=== PATIENT | female | born 2000 | race Caucasian/White ===

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

== ENCOUNTER 2021-05-22 16:42 | Outpatient (CLI) | payer OTHER, SELFPAY ==
--- NOTE | ~2021-05-22 | XR_ITS ---
EXAMINATION: XR ankle LT min 3V DATE: 05/22/2021 17:01 INDICATION: Left ankle pain. TECHNIQUE: 4 views of left ankle were obtained. COMPARISON: None. FINDINGS: Bone alignment is normal. No fracture. Joint spaces are well maintained. IMPRESSION: 1. Normal left ankle. Reviewed, dictated and finalized at location A. IMPRESSION: 1. Normal left ankle.
== END 2021-05-22 16:43 | disposition home or self-care (01) ==
LOC: CHSIMG 16:43
PROVIDERS: PCP Family Medicine; Visit Provider Family Medicine
DX: M79.672 Pain in left foot (principal)
CPT/HCPCS: 73610

== ENCOUNTER 2021-07-19 18:26 | Emergency (ER) | payer OTHER, SELFPAY ==
--- NOTE | ~2021-07-19 | CT_ITS ---
EXAMINATION: CT LE RT wo con DATE: 07/19/2021 23:06 INDICATION: Right lower leg pain. TECHNIQUE: Computed tomography (CT) of the right lower limb was performed without intravenous contras t. Automated exposure control and iterative reconstruction technique were employed. The dose-length p roduct was 795.46 mGy-cm. COMPARISON: Right femur radiographs 07/19/2021 FINDINGS: Bone alignment is normal. There is a tiny chip of bone adjacent to posterior lateral aspect of medial tibial condyle. Joint spaces are normal. There is a moderate-sized lipohemarthrosis. IMPRESSION: 1. Moderate-sized lipohemarthrosis. 2. Tiny chip of bone adjacent to posterior lateral aspect of medial tibial condyle, likely a fracture . Reviewed, dictated and finalized at location A. MACOMETRICIAN IMPRESSION: 1. Moderate-sized lipohemarthrosis. 2. Tiny chip of bone adjacent to posterior lateral aspect of medial tibial cond yle, likely a fracture.
--- NOTE | ~2021-07-19 | XR_ITS ---
EXAMINATION: XR femur RT min 2V DATE: 07/19/2021 18:45 INDICATION: Right femur pain. Injury. TECHNIQUE: 2 views of right femur on 4 radiographs were obtained. COMPARISON: None. FINDINGS: Bone alignment is normal. No fracture. Joint spaces are well maintained. No knee joint effu danial. IMPRESSION: 1. No fracture. Reviewed, dictated and finalized at location A. PLACEMENT COUNSELOR IMPRESSION: 1. No fracture.
--- NOTE | 2021-07-19 18:47 | ED.GENADULT ---
HPI - General Adult General Chief complaint: Extremity Injury, Lower Stated complaint: lower extremity injury Time Seen by Provider: 07/19/21 18:36 Source: patient and RN notes reviewed History of Present Illness HPI narrative: Patient is a 21 y/o female complaining of right thigh and knee pain after jumping on a trampoline. This occurred about 1 hour ago. She describes her pain as sharp and rates it as 8/10. There is no known alleviating or exacerbating factor. She has no headache, neck pain, back pain, chest pain or abdominal pain. Related Data Home Medications Medication Instructions Recorded Confirmed prenat.vits,merissa,[id number] 1 tablet PO DAILY 07/04/19 02/18/21 ferrous sulfate 325 mg (65 mg 325 mg PO DAILY 11/07/20 02/18/21 iron) tablet Allergies Allergy/AdvReac Type Severity Reaction Status Date / Time No Known Allergies Allergy Unknown Verified 07/19/21 19:10 Review of Systems Constitutional: Constitutional: Denies chills, Denies fever(s), Denies headache(s) and Denies weakness Eyes: Eyes: Denies blurry vision ENT: Denies headache(s) and Denies neck pain Cardiovascular: Cardiovascular: Denies chest pain and Denies dyspnea Respiratory: Respiratory: Denies cough and Denies dyspnea Gastrointestinal: Gastrointestinal: Denies abdominal pain, Denies diarrhea, Denies nausea and Denies vomiting Genitourinary: Genitourinary: Denies hematuria and Denies dysuria Musculoskeletal: Musculoskeletal: Denies back pain, Denies neck pain and Reports other (right thigh pain and knee pain) Neurologic: Denies headache(s) and Denies weakness [facility] Past Medical History Medical History Anemia Depression Encounter for counseling regarding contraception Encounter for visit Vaginal delivery Surgical History Surgical History History of appendectomy Hx of tonsillectomy Family History Family History Sibling MCAD deficiency Other IgA nephropathy Social History Social History Smoking status: Never smoker Substance use: never Spiritual care concerns: No Exam Const: General: no acute distress and well developed Orientation/consciousness: oriented to person, oriented to place, oriented to time and patient oriented x3 HENMT: Head: normocephalic Ears: external ears normal General nose exam: Normal external nose present Eyes: General: appearance normal, both eyes and all related structures Conjunctivae: conjunctivae normal Neck: Neck: normal visual inspection and full ROM Chest: Chest palpation & inspection: normal inspection of the chest and no tenderness Resp: Effort & Inspection: normal respiratory effort Auscultation: clear to auscultation bilaterally Cardio: Rate: regular rate Rhythm: regular rhythm GI: GI Palp: No abdominal tenderness and Yes Soft to palpation Skin: General skin exam: normal color and turgor normal Neuro: General: oriented to person, oriented to place, oriented to time and patient oriented x3 Cognition (Neuro): normal cognition Extrem: General: normal to inspection, full ROM and no pedal edema Psych: Appearance: grossly normal Mental Status: mental status grossly normal Affect: normal affect Course Vital Signs Vital signs: Vital Signs Temperature 36.6 C 07/19/21 19:06 Pulse Rate 90 07/19/21 19:06 Respiratory Rate 16 07/19/21 19:06 Blood Pressure 126/78 07/19/21 19:06 Pulse Oximetry 99 07/19/21 19:06 Temperature 36.6 C 07/19/21 19:06 Pulse Rate 74 07/19/21 23:57 Respiratory Rate 16 07/19/21 23:57 Blood Pressure 122/74 07/19/21 23:57 Pulse Oximetry 99 07/19/21 23:57 Medical Decision Making Vital Signs Vital Signs: Vital Signs Temperature 36.6 C 07/19/21 19:06 Pulse Rate 90 07/19/21 19:06
[2021-07-19 19:06] VITALS: BP 126/78; PULSE 90; RESP 16; TEMP 36.6; O2SAT 99
[2021-07-19] MEDS: KETOROLAC 15 MG/ML VIAL (*BKC) IV PUSH (19:11)
[2021-07-19 20:47] VITALS: BP 120/74; PULSE 88; RESP 16; O2SAT 99
[2021-07-19 22:10] VITALS: BP 122/74; PULSE 70; RESP 16; O2SAT 99
[2021-07-19 23:57] VITALS: BP 122/74; PULSE 74; RESP 16; O2SAT 99
== END 2021-07-20 00:08 | disposition home or self-care (01) ==
PROVIDERS: Emergency Provider Emergency Medicine; PCP Family Medicine
DX: M25.461 Effusion, right knee (principal); M25.561 Pain in right knee
CPT/HCPCS: 73552; 73700; 96374; 99284; J1885

== ENCOUNTER 2021-09-30 15:30 | Outpatient (CLI) | payer BC, MEDICAID, SELFPAY ==
[2021-09-30 15:50] LABS: Basophils Absolute Auto 0.04 K/mm3 (0.00-0.10); Basophils Percent Auto 0.4 % (0.0-1.0); Eosinophils Absolute Auto 0.17 K/mm3 (0.02-0.50); Eosinophils Percent Auto 1.8 % (1.0-6.0); Hematocrit 42.1 % (35.0-49.0); Hemoglobin 14.4 g/dL (12.0-15.0); Immature Granulocyte Absolute 0.03 K/mm3 (0.00-0.00); Immature Granulocyte Percent A 0.3 % (0.0-0.0); Lymphocytes Absolute Auto 2.13 K/mm3 (1.10-4.50); Lymphocytes Percent Auto 22.8 % (18.0-42.0); Mean Corpuscular HGB Conc 34.2 g/dL (32.0-36.0); Mean Corpuscular Hemoglobin 30.1 pg (27.0-31.0); Mean Corpuscular Volume 88.1 fL (78.0-102.0); Mean Platelet Volume 9.5 fl (9.2-11.8); Monocytes Absolute Auto 0.57 K/mm3 (0.10-0.90); Monocytes Percent Auto 6.1 % (2.0-11.0); Neutrophils Absolute Auto 6.4 K/mm3 (1.7-7.2); Neutrophils Percent Auto 68.6 % (50.0-70.0); Platelet Count Result 301 K/mm3 (150-420); Red Blood Count 4.78 M/mm3 (4.20-5.40); Red Cell Distribution Width 12.9 % (11.6-14.4); White Blood Count 9.4 K/mm3 (4.8-10.8)
== END 2021-09-30 15:31 | disposition home or self-care (01) ==
LOC: CHSLAB 15:33
PROVIDERS: PCP Family Medicine; Visit Provider Orthopaedic Surgery
DX: D50.8 Other iron deficiency anemias (principal)
CPT/HCPCS: 36415; 85025

== ENCOUNTER 2023-02-07 14:23 | Outpatient (CLI) | payer OTHER, SELFPAY ==
[2023-02-07 14:51] LABS: Influenza Control Valid (Valid); SARS-CoV-2 Ag Negative (Negative)
[2023-02-07 15:10] LABS: Strep Group A RT-PCR NOT DETECTED (Negative)
== END 2023-02-07 14:24 | disposition home or self-care (01) ==
LOC: CHSLAB 14:25
PROVIDERS: PCP Family Medicine; Visit Provider Family Medicine
DX: J06.9 Acute upper respiratory infection, unspecified (principal); Z20.822 Contact with and (suspected) exposure to COVID-19
CPT/HCPCS: 87426; 87651; 87804; C9803

== ENCOUNTER 2023-02-09 05:23 | Emergency (ER) | payer OTHER, SELFPAY ==
--- NOTE | ~2023-02-09 | CT_ITS ---
CT Facial Bones Clinical Indication: Infectious symptoms, right jaw pain Technique: Following intravenous administration of 75 mL of Omnipaque 350 contrast material, axial sc ans were obtained through the facial bones followed by coronal and sagittal reconstructions. Dose red uction technique was used on this scan by utilizing automated exposure control and iterative reconstr uction technique. The dose-length product (DLP) was 512.99 mGy-cm. Findings: No fractures are identified. The visualized paranasal sinuses are clear. Intraorbital soft tissues appear normal. No abnormal mass lesion or fluid collection seen. Impression: No significant abnormality identified. Reviewed, dictated and finalized at location . Impression: No significant abnormality identified.
[2023-02-09 05:25] VITALS: PULSE 100; RESP 15; TEMP 36.6; O2SAT 100
--- NOTE | 2023-02-09 05:47 | ED.URI ---
HPI - URI/Sore Throat General Chief Complaint: Eye Problems Stated Complaint: pink eye-right sided jaw pain Time Seen by Provider: 02/09/23 05:40 History of Present Illness HPI Narrative: Patient has been having congestion symptoms for the last few days, then started having right-sided pinkeye, this morning was woken out of sleep because her right jaw was hurting so badly; no dental problems, but feels like her teeth are going to fall out due to pain. Related Data Home Medications Medication Instructions Recorded Confirmed prenat.vits,merissa,uvp-dzra-avhjn 1 tablet PO DAILY 07/04/19 02/18/21 ferrous sulfate 325 mg (65 mg 325 mg PO DAILY 11/07/20 02/18/21 iron) tablet (Iron (ferrous sulfate)) Allergies Allergy/AdvReac Type Severity Reaction Status Date / Time No Known Allergies Allergy Unknown Verified 02/09/23 05:29 Review of Systems Review of Systems: CONST: No fever. HEENT: Right jaw pain, congestion, right pinkeye C/V: No chest pain RESP: No cough GI: No abdominal pain : No dysuria. M/S: No joint pain. SKIN: No rash. NEURO: [No headache or focal numbness or weakness] PSYCH: [No depression] [facility] Past Medical History Medical History Anemia Depression Encounter for counseling regarding contraception Encounter for visit Vaginal delivery Surgical History Surgical History History of appendectomy Hx of tonsillectomy Family History Family History Sibling MCAD deficiency Other IgA nephropathy Social History Social History Smoking status: Never smoker Substance use: never Spiritual care concerns: No Exam Narrative: EXAMINATION OF ORGAN SYSTEMS/BODY AREAS: Constitutional: Vital signs per nursing GENERAL: Appears uncomfortable, holding towel to her right jaw HEAD: Normal with no signs of head trauma. EYES: Injected right eye with some tearing and very slight swelling of eyelids ENT: No dental tenderness or caries, no trismus; she has tenderness to palpation to the right jaw. Right ear no tenderness to canal, no bulging TM LUNGS: Nonlabored breathing. HEART: [Regular rate and rhythm] EXT: Normal range of motion SKIN: [No rashes or lesions.] NEURO: [Alert and oriented x 3. No gross focal sensory or strength deficits.] PSYCH: Normal affect Course Vital Signs Vital signs: Vital Signs Temperature 36.6 C 02/09/23 05:25 Pulse Rate 100 02/09/23 05:25 Respiratory Rate 15 02/09/23 05:25 Pulse Oximetry 100 02/09/23 05:25 Oxygen Delivery Room Air 02/09/23 05:25 Temperature 36.6 C 02/09/23 05:25 Pulse Rate 100 02/09/23 05:25 Respiratory Rate 15 02/09/23 05:25 Pulse Oximetry 100 02/09/23 05:25 Oxygen Delivery Room Air 02/09/23 05:25 MDM - URI/Sore Throat MDM Narrative Medical decision making narrative: 22-year-old female presenting with congestion symptoms and right jaw pain that woke her out of sleep. Vital signs notable for borderline tachycardia, she does look to be pretty uncomfortable and holding her jaw, no obvious dental tenderness or caries, she does have all of right-sided abnormalities but with right jaw pain, right eye pain and redness, given this I will obtain a broad work-up including blood work and CAT scan to rule out deeper infection. She is started on antibiotics. Toradol and loratadine/Sudafed ordered, and on reevaluation, patient states that she is feeling much better. Signout to oncoming ER physician. Lab Data 02/09/23 06:49 02/09/23 06:49 Labs: Lab Results 02/09/23 Range/Units 06:49 WBC 11.8 H (4.5-10.0) K/mm3 RBC 4.82 (4.2-5.4) M/mm3 Hgb 13.7 D (12.0-15.0) g/dL Hct 41.8 (37.0-47.0) % MCV 86.7 (80-100) fl MCH 28.4 (26-34) pg MCHC 32.8
[2023-02-09] MEDS: KETOROLAC 30 MG/ML VIAL (*BKC) IM (05:54)
[2023-02-09] MEDS: LORATADINE/PSEUDOEPHEDRINE (*CRX) 10/240 MG TABLET ER 24 HR 1 TAB PO (05:55)
[2023-02-09 06:55] LABS: Basophils Percent Auto 0.2 % (0.2-1.2); Eosinophils Absolute Auto 0.1 K/mm3 (0-0.3); Eosinophils Percent Auto 1.2 % (0-4.4); Hematocrit 41.8 % (37.0-47.0); Hemoglobin 13.7 g/dL (12.0-15.0); Immature Granulocyte Absolute 0.06 K/mm3 (0.00-0.031); Immature Granulocyte Percent A 0.5 % (0-0.5); Lymphocytes Absolute Auto 1.52 K/mm3 (0.9-3.2); Lymphocytes Percent Auto 12.8 % (18.3-44.2); Mean Corpuscular HGB Conc 32.8 g/dl (32-36); Mean Corpuscular Hemoglobin 28.4 pg (26-34); Mean Corpuscular Volume 86.7 fl (80-100); Mean Platelet Volume 9.2 fl (7.4-10.4); Monocytes Absolute Auto 0.6 K/mm3 (0.1-0.6); Monocytes Percent Auto 4.9 % (2.6-8.5); Neutrophils Absolute Auto 9.5 K/mm3 (1.3-6.7); Neutrophils Percent Auto 80.4 % (45.5-73.1); Platelet Count Result 280 k/mm3 (150-375); Red Blood Count 4.82 M/mm3 (4.2-5.4); Red Cell Distribution Width 12.7 % (11.5-14.5); White Blood Count 11.8 K/mm3 (4.5-10.0)
[2023-02-09 07:05] LABS: Anion Gap 7 mmol/L (8-16); Blood Urea Nitrogen 10 mg/dL (7-17); Calcium 9.1 mg/dL (8.4-10.2); Carbon Dioxide 30 mmol/L (22-30); Chloride 103 mmol/L (98-107); Estimated CRCL calculation 123 ml/min; Estimated Glomerular Filt Rate > 60; Glucose 96 mg/dL (65-110); Potassium 3.9 mmol/L (3.4-5.0); Sodium 140 mmol/L (137-145)
[2023-02-09] MEDS: CLINDAMYCIN 600 MG/D5W 50 ML 600 MG/50 ML PIGGYBACK 100 MG IVPB (07:27)
== END 2023-02-09 08:39 | disposition home or self-care (01) ==
PROVIDERS: Emergency Medicine; Emergency Provider Emergency Medicine; PCP Family Medicine
DX: K08.89 Other specified disorders of teeth and supporting structures (principal)
CPT/HCPCS: 36415; 70487; 80048; 81025; 85025; 96365; 96372; 99284; A9270; J1885; Q9967

== ENCOUNTER 2023-06-23 20:08 | Emergency (ER) | payer OTHER, SELFPAY ==
[2023-06-23 21:01] VITALS: BP 118/77; PULSE 93; RESP 18; TEMP 36.6; O2SAT 96
[2023-06-23 21:35] LABS: Basophils Absolute Auto 0.01 K/mm3 (0.00-0.10); Basophils Percent Auto 0.1 % (0.0-1.0); Eosinophils Absolute Auto 0.21 K/mm3 (0.02-0.50); Eosinophils Percent Auto 3.1 % (1.0-6.0); Hematocrit 42.4 % (35.0-49.0); Hemoglobin 14.3 g/dL (12.0-15.0); Immature Granulocyte Absolute 0.01 K/mm3 (0.00-0.00); Immature Granulocyte Percent A 0.1 % (0.0-0.0); Lymphocytes Absolute Auto 0.92 K/mm3 (1.10-4.50); Lymphocytes Percent Auto 13.6 % (18.0-42.0); Mean Corpuscular HGB Conc 33.7 g/dL (32.0-36.0); Mean Corpuscular Hemoglobin 29.1 pg (27.0-31.0); Mean Corpuscular Volume 86.2 fL (78.0-102.0); Mean Platelet Volume 9.4 fl (9.2-11.8); Monocytes Absolute Auto 0.48 K/mm3 (0.10-0.90); Monocytes Percent Auto 7.1 % (2.0-11.0); Neutrophils Absolute Auto 5.1 K/mm3 (1.7-7.2); Platelet Count Result 283 K/mm3 (150-420); Red Blood Count 4.92 M/mm3 (4.20-5.40); Red Cell Distribution Width 12.2 % (11.6-14.4); White Blood Count 6.8 K/mm3 (4.8-10.8)
[2023-06-23] MEDS: SODIUM CHLORIDE 0.9% IV 1,000 ML 999 ML IV CONT (21:51)
[2023-06-23] MEDS: ONDANSETRON INJ 4 MG/2 ML VIAL IV PUSH (21:52)
[2023-06-23 21:53] LABS: Alanine Aminotransferase 16 U/L (14-59); Albumin Level 3.8 g/dL (3.4-5.0); Alkaline Phosphatase 94 U/L (46-116); Anion Gap 10 mmol/L (8-16); Aspartate Amino Transferase 12 U/L (15-37); Bilirubin,Total 0.8 mg/dL (0.00-1.00); Blood Urea Nitrogen 13 mg/dL (7-18); Carbon Dioxide 26 mmol/L (21-32); Chloride 103 mmol/L (98-108); Estimated CRCL calculation 94 ml/min; Estimated Glomerular Filt Rate > 60; Glucose 84 mg/dL (70-99); Osmolality Calculated 287 mOsm/kg (285-295); Potassium 3.9 mmol/L (3.5-5.1); Sodium 139 mmol/L (136-145); Total Protein 7.4 g/dL (6.4-8.2)
[2023-06-23 22:17] LABS: Influenza A QL RT-PCR Negative (Negative); Influenza B QL RT-PCR Negative (Negative); SARS-CoV-2 RNA PCR Negative (Negative)
--- NOTE | 2023-06-23 22:19 | ED.NAVMDI ---
HPI - Nausea/Vomiting/Diarrhea General Chief complaint: Nausea/Vomiting/Diarrhea Stated complaint: FLU LIKE SYMPTOMS WITH DIZZINESS Source: patient and family Mode of arrival: ambulatory Limitations: no limitations History of Present Illness HPI Narrative: this is 23-year-old female with no significant past medical history that presents with nausea vomiting and diarrhea off and on for the past week did see her primary a week ago and was given Zofran currently symptoms have continued with diarrhea there is no crampy abdominal pain no fever chills no shortness of breath no chest pain. MD elicited complaint: nausea, vomiting and diarrhea Associated nausea: Yes Associated abdominal pain: No Related Data Home Medications Medication Instructions Recorded Confirmed ondansetron HCl 4 mg tablet 8 mg PO BID 06/23/23 06/23/23 Allergies Allergy/AdvReac Type Severity Reaction Status Date / Time No Known Allergies Allergy Unknown Verified 02/09/23 05:29 Review of Systems Review of Systems: All systems reviewed & are unremarkable except as noted in HPI and below PMFSH Past Medical History Medical History Anemia Depression Encounter for counseling regarding contraception Encounter for visit Vaginal delivery Surgical History Surgical History History of appendectomy Hx of tonsillectomy Family History Family History Sibling MCAD deficiency Other IgA nephropathy Social History Social History Smoking status: Never smoker Substance use: never Spiritual care concerns: No Exam Const: General: healthy appearing Nutritional Appearance: well nourished Orientation/consciousness: patient oriented x3 Limitations: no limitations HENMT: Head: normal to inspection Eyes: Conjunctivae: conjunctivae normal Pupils: Equal, round and reactive pupils present Neck: Neck: normal visual inspection, no lymphadenopathy and no meningeal signs Chest: Chest palpation & inspection: normal inspection of the chest Resp: Effort & Inspection: normal respiratory effort Auscultation: clear to auscultation bilaterally Cardio: Rate: regular rate Rhythm: regular rhythm GI: GI Palp: Yes Soft to palpation Auscultation: normal bowel sounds Urinary Catheter: Urinary Catheter: patent and draining Back/Spine/Pelvis: Back: no CVA tenderness Skin: General skin exam: normal color Rashes: no rashes Neuro: General: patient oriented x3 and moves all extremities Psych: Mental Status: mental status grossly normal Affect: normal affect Course Course Emergency Course: Patient received Zofran IV and IV fluids after reassessment patient's symptoms have improved, labs reviewed which showed no acute abnormalities, and COVID RSV and influenza negative. Vital Signs Vital signs: Vital Signs Temperature 36.6 C 06/23/23 21:01 Pulse Rate 93 06/23/23 21:01 Respiratory Rate 18 06/23/23 21:01 Blood Pressure 118/77 06/23/23 21:01 Pulse Oximetry 96 06/23/23 21:01 Oxygen Delivery Room Air 06/23/23 21:01 Temperature 36.6 C 06/23/23 21:01 Pulse Rate 93 06/23/23 21:01 Respiratory Rate 18 06/23/23 21:01 Blood Pressure 118/77 06/23/23 21:01 Pulse Oximetry 96 06/23/23 21:01 Oxygen Delivery Room Air 06/23/23 21:01 MDM - Nausea/Vomiting/Diarrhea Lab Data 06/23/23 21:31 06/23/23 21:31 Labs: Lab Results 06/23/23 Range/Units 21:31 WBC 6.8 (4.8-10.8) K/mm3 RBC 4.92 (4.20-5.40) M/mm3 Hgb 14.3 (12.0-15.0) g/dL Hct 42.4 (35.0-49.0) % MCV 86.2 (78.0-102.0) fL MCH 29.1 (27.0-31.0) pg MCHC 33.7 (32.0-36.0) g/dL RDW 12.2 (11.6-14.4) % Plt Count 283 (150-420) K/mm3 MPV 9.4 (9.2-11.8) fl Immature Gran % (A
[2023-06-23 22:21] LABS: RSV RNA, RT-PCR Negative (Negative)
[2023-06-23 22:25] VITALS: BP 124/77; PULSE 88; RESP 16; O2SAT 98
== END 2023-06-23 22:36 | disposition home or self-care (01) ==
PROVIDERS: Emergency Provider Emergency Medicine; PCP Family Medicine
DX: K52.9 Noninfective gastroenteritis and colitis, unspecified (principal); Z20.822 Contact with and (suspected) exposure to COVID-19
CPT/HCPCS: 36415; 80053; 85025; 87637; 96361; 96374; 99284; J2405; J7030

== ENCOUNTER 2023-07-25 07:42 | Emergency (ER) | payer OTHER, SELFPAY ==
[2023-07-25 07:42] VITALS: BP 119/83; PULSE 128; RESP 18; TEMP 37.7; O2SAT 98
--- NOTE | 2023-07-25 07:59 | ED.GENADULT ---
HPI - General Adult General Chief complaint: Upper Respiratory Infection Stated complaint: upper resp Time Seen by Provider: 07/25/23 07:59 History of Present Illness HPI narrative: Healthy 23yo woman, , presents with sore throat, chills, body aches, for one day. No dyspnea or chest pain. Needs work note. Related Data Home Medications Medication Instructions Recorded Confirmed No Home Medications 07/25/23 07/25/23 Allergies Allergy/AdvReac Type Severity Reaction Status Date / Time No Known Allergies Allergy Unknown Verified 07/25/23 07:43 Review of Systems Constitutional: Constitutional: Reports chills and Denies fever(s) ENT: Denies dysphagia Cardiovascular: Cardiovascular: Denies chest pain Respiratory: Respiratory: Denies dyspnea PMFSH Past Medical History Medical History Anemia Depression Encounter for counseling regarding contraception Encounter for visit Vaginal delivery Surgical History Surgical History History of appendectomy Hx of tonsillectomy Family History Family History Sibling MCAD deficiency Other IgA nephropathy Social History Social History Smoking status: Never smoker Substance use: never Spiritual care concerns: No Exam Const: General: healthy appearing and no acute distress Nutritional Appearance: well nourished Eyes: Conjunctivae: conjunctivae normal Resp: Effort & Inspection: normal respiratory effort Auscultation: clear to auscultation bilaterally Cardio: Rate: regular rate Rhythm: regular rhythm Heart sounds: no murmurs GI: Inspection: non-distended Skin: General skin exam: normal color, no jaundice and no pallor Extrem: General: no clubbing, cyanosis or edema Course Vital Signs Vital signs: Vital Signs Temperature 37.7 C H 07/25/23 07:42 Pulse Rate 128 H 07/25/23 07:42 Respiratory Rate 18 07/25/23 07:42 Blood Pressure 119/83 07/25/23 07:42 Pulse Oximetry 98 07/25/23 07:42 Oxygen Delivery Room Air 07/25/23 07:42 Temperature 37.7 C H 07/25/23 07:42 Pulse Rate 128 H 07/25/23 07:42 Respiratory Rate 18 07/25/23 07:42 Blood Pressure 119/83 07/25/23 07:42 Pulse Oximetry 98 07/25/23 07:42 Oxygen Delivery Room Air 07/25/23 07:42 Medical Decision Making MDM Narrative Medical decision making narrative: acute viral syndrome, symptom relief, work excusal Vital Signs Vital Signs: Vital Signs Temperature 37.7 C H 07/25/23 07:42 Pulse Rate 128 H 07/25/23 07:42 Respiratory Rate 18 07/25/23 07:42 Blood Pressure 119/83 07/25/23 07:42 Pulse Oximetry 98 07/25/23 07:42 Oxygen Delivery Room Air 07/25/23 07:42 Temperature 37.7 C H 07/25/23 07:42 Pulse Rate 128 H 07/25/23 07:42 Respiratory Rate 18 07/25/23 07:42 Blood Pressure 119/83 07/25/23 07:42 Pulse Oximetry 98 07/25/23 07:42 Oxygen Delivery Room Air 07/25/23 07:42 Lab Data Labs: Lab Results 07/25/23 Range/Units 07:46 Influenza A (RT-PCR) Pending Influenza B (RT-PCR) Pending RSV (RT-PCR) Pending SARS-CoV-2 RNA (RT-PCR) Pending Group A Strep (PCR) Pending Discharge Plan Discharge Clinical Impression: Acute viral syndrome Patient Disposition: Home, Self-Care Condition: Stable Instructions: Antibiotic Form Additional Instructions: For pain or fever, you can take Acetaminophen 1000 mg every 6 hours as needed. For nausea, you can take Diphenhydramine 25 mg every 6 hours as needed. Drink plenty of water, juice, and/or gatorade. Try to drink at least a half-gallon (4 pints) per day. Prescriptions: No Action No Home Medications Follow-up/Referrals: Alex Perez MD [Primary Care Prov
[2023-07-25] MEDS: ONDANSETRON HCL ODT 4 MG TABLET PO (08:11)
[2023-07-25] MEDS: ACETAMINOPHEN 500 MG TABLET 1000 MG PO (08:11)
[2023-07-25 08:13] LABS: Strep Group A RT-PCR NOT DETECTED (Negative)
[2023-07-25 08:24] LABS: SARS-CoV-2 RNA PCR Negative (Negative)
[2023-07-25 08:36] LABS: Influenza A QL RT-PCR Negative (Negative); Influenza B QL RT-PCR Negative (Negative); RSV RNA, RT-PCR Negative (Negative)
[2023-07-25 08:42] VITALS: PULSE 122; RESP 18; TEMP 37.1; O2SAT 98
== END 2023-07-25 08:42 | disposition home or self-care (01) ==
PROVIDERS: Emergency Provider Emergency Medicine; PCP Family Medicine
DX: B34.9 Viral infection, unspecified (principal); Z20.822 Contact with and (suspected) exposure to COVID-19
CPT/HCPCS: 87637; 87651; 99283; A9270

== ENCOUNTER 2023-09-22 10:03 | Emergency (ER) | payer OTHER, SELFPAY ==
[2023-09-22 10:03] VITALS: BP 128/104; PULSE 112; RESP 14; TEMP 36.6; O2SAT 100
--- NOTE | 2023-09-22 10:28 | ED.FEMALEGU ---
HPI - Female Genitourinary General Chief complaint: Urogenital-Female Stated complaint: UTI Source: patient Mode of arrival: ambulatory Limitations: no limitations History of Present Illness HPI Narrative: this is a 23-year-old female that was recently diagnosed with urinary tract infection by her drop board worker but did not take her medication presents today with some continued suprapubic pain and tenderness with no fever chills the patient is 13 weeks with no cramping no vaginal bleeding no spotting. No nausea vomiting no chest pain no shortness of breath no diarrhea or constipation. MD elicited complaint: dysuria and flank pain Severity: mild Female Urogenital Radiation: Suprapubic Related Data Home Medications Medication Instructions Recorded Confirmed ferrous sulfate 325 mg (65 mg 325 mg PO DAILY 09/22/23 09/22/23 iron) tablet (iron) nitrofurantoin 1 cap PO BID 09/22/23 09/22/23 monohydrate/macrocrystals 100 mg capsule vitamins no.144-folic 1 tablet PO DAILY 09/22/23 09/22/23 acid 400 mcg chewable tablet () Allergies Allergy/AdvReac Type Severity Reaction Status Date / Time No Known Allergies Allergy Unknown Verified 07/25/23 07:43 Review of Systems Review of Systems: All systems reviewed & are unremarkable except as noted in HPI and below PMFSH Past Medical History Medical History Anemia Depression Encounter for counseling regarding contraception Encounter for visit Vaginal delivery Surgical History Surgical History History of appendectomy Hx of tonsillectomy Family History Family History Sibling MCAD deficiency Other IgA nephropathy Social History Social History Smoking status: Never smoker Substance use: never Spiritual care concerns: No Exam Const: General: healthy appearing Nutritional Appearance: well nourished Orientation/consciousness: patient oriented x3 Chest: Chest palpation & inspection: normal inspection of the chest Resp: Effort & Inspection: normal respiratory effort Auscultation: clear to auscultation bilaterally Cardio: Rate: regular rate Rhythm: regular rhythm GI: GI Palp: Yes Soft to palpation and Yes Tenderness to palpation present (GI) ( Suprapubic tenderness) : General: Yes Bladder palpation abnormal and Yes CVA tenderness Back/Spine/Pelvis: Back: CVA tenderness Skin: General skin exam: normal color Rashes: no rashes Neuro: General: patient oriented x3 Cranial nerves: Yes Nystagmus not present Extrem: General: normal to inspection Psych: Appearance: grossly normal Course Course Emergency Course: patient afebrile and given a dose of antibiotic Macrobid 100mg p.o. along with Tylenol extra-strength 650mg p.o.. Advised to cone picker her dose of Macrobid that was called in by her drop board worker and follow-up with [employer] if symptoms persist or worsen. urine performed which show she has urinary tract infection and antibiotic prescribed by her drop board worker advised continue. Vital Signs Vital signs: Vital Signs Temperature 36.6 C 09/22/23 10:03 Pulse Rate 112 H 09/22/23 10:03 Respiratory Rate 14 09/22/23 10:03 Blood Pressure 128/104 H 09/22/23 10:03 Pulse Oximetry 100 09/22/23 10:03 Oxygen Delivery Room Air 09/22/23 10:03 Temperature 36.6 C 09/22/23 10:03 Pulse Rate 112 H 09/22/23 10:03 Respiratory Rate 14 09/22/23 10:03 Blood Pressure 128/104 H 09/22/23 10:03 Pulse Oximetry 100 09/22/23 10:03 Oxygen Delivery Room Air 09/22/23 10:03 Critical Care Time Critical Care Time Critical Care Time: No Discharge Plan Discharge Clinical Impression: UTI (urinary tract infection) Qualifiers: Urinary tract infection type: acute cystitis Hematuria presence: wit
[2023-09-22 10:46] LABS: Appearance Urine Clear (Clear); Bilirubin Urine Negative (Negative); Blood Urine 3+ (Negative); Color Urine Light Yellow (Yellow); Glucose Urine UA Negative (Negative); Ketones Urine Negative (Negative); Leukocyte Esterase Ur 1+ LEU/UL (Negative); Nitrate Urine Negative (Negative); Protein Urine Negative (Negative); Specific Grav Ur 1.025 (1.010-1.020); Urobilinogen Urine 0.2 mg/dL (0.2-1.0)
[2023-09-22 10:50] LABS: Add Urine Microscopic? YES; RBC Urine 21-50 /hpf (0-2); Squamous Epithelial Cell Urine Few /hpf (Few)
[2023-09-22 10:51] LABS: Bacteria Urine 1+ /hpf
[2023-09-22] MEDS: ACETAMINOPHEN 325 MG TABLET 650 MG PO (11:10)
[2023-09-22] MEDS: NITROFURANTOIN MONOHYD MACROCR 100 MG CAP PO (11:11)
[2023-09-22 11:17] VITALS: BP 113/71; PULSE 100; RESP 14; TEMP 36.8; O2SAT 100
--- NOTE | 2023-09-24 13:29 | PC.NURSE ---
final urine culture reviewed. 10,000-49,000 E.co;i isolated. pt was prescribed macrobid at discharge. culture shows sensitivity to same. no change in plan of care.
== END 2023-09-22 11:26 | disposition home or self-care (01) ==
PROVIDERS: Emergency Provider Emergency Medicine; PCP Family Medicine
DX: O23.11 Infections of bladder in pregnancy, first trimester (principal); N30.00 Acute cystitis without hematuria; Z3A.13 13 weeks gestation of pregnancy
CPT/HCPCS: 81001; 87077; 87086; 87088; 87186; 99283; A9270

== ENCOUNTER 2023-10-02 09:26 | Emergency (ER) | payer OTHER, SELFPAY ==
[2023-10-02 09:30] VITALS: BP 138/91; PULSE 86; RESP 17; TEMP 36.3; O2SAT 100
--- NOTE | 2023-10-02 09:43 | ED.GENADULT ---
HPI - General Adult General Chief complaint: Animal Bite Stated complaint: R THIGH DOG BITE Time Seen by Provider: 10/02/23 09:42 History of Present Illness HPI narrative: This is a 23-year-old female at 15 weeks gestation presenting for a dog bite. Patient was trying to separate her husky and [place] Terrier. the house she bit her on thigh. She has a superficial abrasion over her right thigh. Dog is up-to-date child is acting normally. No complaints. tetanus utd. Related Data Home Medications Medication Instructions Recorded Confirmed ferrous sulfate 325 mg (65 mg 325 mg PO DAILY 09/22/23 10/02/23 iron) tablet (iron) vitamins no.144-folic 1 tablet PO DAILY 09/22/23 10/02/23 acid 400 mcg chewable tablet () Allergies Allergy/AdvReac Type Severity Reaction Status Date / Time No Known Allergies Allergy Unknown Verified 10/02/23 09:42 [facility] Past Medical History Medical History Anemia Depression Encounter for counseling regarding contraception Encounter for visit Vaginal delivery Surgical History Surgical History History of appendectomy Hx of tonsillectomy Family History Family History Sibling MCAD deficiency Other IgA nephropathy Social History Social History Smoking status: Never smoker Substance use: never Spiritual care concerns: No Exam Narrative: APPEARANCE: No apparent distress. Head: atraumatic. EYES: EOMI, NOSE: Atraumatic NECK: Trachea midline RESPIRATORY: No increased rate of breathing CARDIOVASCULAR: RRR, ABDOMINAL: Non-distended MUSCULOSKELETAl: No obvious deformities NEURO: Alert. Moving 4/4 extremities SKIN:: Punctate abrasion over the proximal right thigh. Minor bruising PSYCHIATRIC: Normal affect Course Vital Signs Vital signs: Vital Signs Temperature 97.4 F L 10/02/23 09:30 Pulse Rate 86 10/02/23 09:30 Respiratory Rate 17 10/02/23 09:30 Blood Pressure 138/91 H 10/02/23 09:30 Pulse Oximetry 100 10/02/23 09:30 Temperature 97.4 F L 10/02/23 09:30 Pulse Rate 86 10/02/23 09:30 Respiratory Rate 17 10/02/23 09:30 Blood Pressure 138/91 H 10/02/23 09:30 Pulse Oximetry 100 10/02/23 09:30 Medical Decision Making MDM Narrative Medical decision making narrative: -Course: 23-year-old presenting with a very superficial abrasion over right thigh from her dog. very low risk for infection.No need for antibiotics. Tetanus up-to-date. Wound was cleansed patient discharged with return precautions for signs of infection. 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 Denies use of drugs or alcohol -Shared decision making / Disposition: discharged - Vital Signs Vital Signs: Vital Signs Temperature 97.4 F L 10/02/23 09:30 Pulse Rate 86 10/02/23 09:30 Respiratory Rate 17 10/02/23 09:30 Blood Pressure 138/91 H 10/02/23 09:30 Pulse Oximetry 100 10/02/23 09:30 Temperature 97.4 F L 10/02/23 09:30 Pulse Rate 86 10/02/23 09:30 Respiratory Rate 17 10/02/23 09:30 Blood Pressure 138/91 H 10/02/23 09:30 Pulse Oximetry 100 10/02/23 09:30 Discharge Plan Discharge Clinical Impression: Dog bite of great toe Patient Disposition: Home, Self-Care Condition: Stable Instructions: Antibiotic Form, Animal Bite (ED) Additional Instructions: follow-up with primary care physician. Return if you develop signs of infection. Prescriptions: No Action ferrous sulfate [iron] 325 mg (65 mg iron) Tablet 325 mg PO DAILY 400 mcg Tablet,Chewable 1 tabl
--- NOTE | 2023-10-02 09:51 | PC.NURSE ---
On 10/02/23, the student, Linnette Moreno, provided care and completed [facility] documentation on this patient. I have reviewed the student's documentation and agree with the findings.
[2023-10-02 10:03] VITALS: BP 138/91; PULSE 86; RESP 17; TEMP 36.3; O2SAT 100
== END 2023-10-02 10:03 | disposition home or self-care (01) ==
LOC: CHSED 09:53
PROVIDERS: Emergency Provider Emergency Medicine; PCP Family Medicine
DX: O26.892 Other specified pregnancy related conditions, second trimester (principal); S91.15 Open bite of toe without damage to nail; S71.151A Open bite, right thigh, initial encounter; W54.0XXA Bitten by dog, initial encounter; Y92.009 Unspecified place in unspecified non-institutional (private) residence as the place of occurrence of the external cause; Z3A.15 15 weeks gestation of pregnancy
CPT/HCPCS: 99282

== ENCOUNTER 2023-11-15 18:03 | Emergency (ER) | payer BC, OTHER, SELFPAY ==
[2023-11-15] VITALS (11 sets, daily range): BP systolic 98–145; BP diastolic 62–87; PULSE 86–118; RESP 12–22; TEMP 36.4–36.8; O2SAT 98–100
--- NOTE | ~2023-11-15 | CT_ITS ---
EXAMINATION: CTA chest PE protocol DATE: 11/15/2023 20:54 INDICATION: preg; sob; clear breath sounds; no hx; elev dimer TECHNIQUE: Computed tomography angiography (CTA) of the chest was performed with 100 mL Omnipaque-350 intravenous contrast timed to evaluate the pulmonary arteries. Coronal maximum intensity projection 3D-reconstructions were created by the technologist. The dose-length product (DLP) was 625.45 mGy-cm. Automated exposure control and iterative reconstruction technique were employed. COMPARISON: None. FINDINGS: Lung parenchyma and airways: Clear. Pleura: Unremarkable. Thoracic inlet, axillae and chest wall: Unremarkable. Thoracic aorta: No significant dilation. No dissection. Mediastinum: Normal. Heart and pericardium: Normal. Coronary artery calcifications: Absent. Upper abdomen: No significant finding. Bones: No acute osseous finding. Pulmonary arteries: Study quality: Adequate. No pulmonary emboli detected. IMPRESSION: No CT evidence of acute pulmonary embolus. No acute process detected in the chest. Reviewed, dictated and finalized at location K.
--- NOTE | 2023-11-15 18:11 | ED.SOB ---
HPI - SOB/Dyspnea General Chief Complaint: Shortness of Breath/Dyspnea <Leon Crow APRN - Last Filed: 11/15/23 18:19> Stated Complaint: SOB, 22 weeks <Leon Crow APRN - Last Filed: 11/15/23 18:19> Time Seen by Provider: 11/15/23 18:10 <Leon Crow APRN - Last Filed: 11/15/23 18:19> Focused HPI: Ana Lilia is a 23-year-old female patient presenting to the ER today with complaints of shortness of breath for the past 3 days. She reports she has a nonproductive cough. No other URI symptoms. She denies any fever, chills, or body aches. She is currently 22 weeks . No history of asthma, COPD, or bronchitis. General: Well-developed, well nourished, in no apparent distress Head: Normocephalic, atraumatic Eyes: Pupils equally round and reactive to light bilaterally, EOM intact, sclera and conjunctive clear, no discharge, lids normal Ears: TMs intact and clear, ear canals clear, no drainage, grossly hearing normal. Nose: Nares patent, no discharge, no inflammation, no sinus tenderness. Mouth: Oropharynx without lesions or masses, good dentition, MMM. Neck: Supple, trachea midline, no enlargement of anterior or posterior cervical nodes, no thyroid masses or goiter palpable. Cardio: Regular rate and rhythm, s1 and s2 normal, no murmur appreciated. Resp: Clear to auscultation bilaterally anteriorly and posteriorly, no rhonchi, rales, wheezing or rubs Patient screened in triage and initial orders placed. Additional care and disposition to be based upon diagnostic testing and treatment. <Leon Crow APRN - Last Filed: 11/15/23 18:19> Source: patient <Leon Crow APRN - Last Filed: 11/15/23 18:19> Mode of arrival: ambulatory <Leon Crow APRN - Last Filed: 11/15/23 18:19> Limitations: no limitations <Leon Crow APRN - Last Filed: 11/15/23 18:19> History of Present Illness HPI Narrative: Concur with history as above with the following additions/exceptions obtained during my HPI: patient is a G 3 P2002 female at 21w1d GA by reported ROSIO of 03/26/2024. OBGYN is Dr. Raciel Menard. Patient states she feels like she cannot catch her breath. She continues to feel good movement and denies any leakage of fluid, contractions, abdominal pain. She trialed 600 mg of ibuprofen at home <Domitila Woodard MD - Last Filed: 11/15/23 23:23> Related Data Home Medications: Home Medications Medication Instructions Recorded Confirmed ferrous sulfate 325 mg (65 mg 325 mg PO DAILY 09/22/23 10/02/23 iron) tablet (iron) vitamins no.144-folic 1 tablet PO DAILY 09/22/23 10/02/23 acid 400 mcg chewable tablet () <Leon Crow APRN - Last Filed: 11/15/23 18:19> Allergies/Adverse Reactions: Allergies Allergy/AdvReac Type Severity Reaction Status Date / Time No Known Allergies Allergy Unknown Verified 10/02/23 09:42 <Leon Crow APRN - Last Filed: 11/15/23 18:19> [facility] Past Medical History Medical History: Medical History Anemia Depression Vaginal delivery <Leon Crow APRN - Last Filed: 11/15/23 18:19> Surgical History Surgical History: Surgical History History of appendectomy Hx of tonsillectomy <Leon Crow APRN - Last Filed: 11/15/23 18:19> Family History Family History: Family History Sibling MCAD deficiency Other IgA nephropathy <Leon rCow APRN - Last Filed: 11/15/23 18:19> Social History Social History: Social History Smoking status: Never smoker Substance use: never Spiritual care concerns: No <Leon Crow APRN - Last Filed: 11/15/23 18:19> Comments At
--- NOTE | 2023-11-15 18:12 | ECG_ITS ---
Measurements Intervals [place] Rate: 102 P: 8 CO: 124 QRS: 48 QRSD: 92 T: 28 QT: 335 QTc: 438 Interpretive Statements SINUS TACHYCARDIA BASELINE ARTIFACT BORDERLINE ECG NO PREVIOUS ECG AVAILABLE FOR COMPARISON Electronically Signed On 11-16-2023 14:28:36 CDT by Blaise Frances M.D.
[2023-11-15 18:26] LABS: Basophils Percent Auto 0.3 % (0.2-1.2); Eosinophils Absolute Auto 0.1 K/mm3 (0-0.3); Hematocrit 35.6 % (37.0-47.0); Hemoglobin 11.8 g/dL (12.0-15.0); Immature Granulocyte Absolute 0.06 K/mm3 (0.00-0.031); Immature Granulocyte Percent A 0.5 % (0-0.5); Lymphocytes Absolute Auto 1.82 K/mm3 (0.9-3.2); Lymphocytes Percent Auto 15.8 % (18.3-44.2); Mean Corpuscular HGB Conc 33.1 g/dl (32-36); Mean Corpuscular Hemoglobin 29.4 pg (26-34); Mean Corpuscular Volume 88.8 fl (80-100); Mean Platelet Volume 9.6 fl (7.4-10.4); Monocytes Absolute Auto 0.3 K/mm3 (0.1-0.6); Monocytes Percent Auto 2.8 % (2.6-8.5); Neutrophils Absolute Auto 9.2 K/mm3 (1.3-6.7); Neutrophils Percent Auto 79.6 % (45.5-73.1); Platelet Count Result 286 k/mm3 (150-375); Red Blood Count 4.01 M/mm3 (4.2-5.4); Red Cell Distribution Width 14.2 % (11.5-14.5); White Blood Count 11.5 K/mm3 (4.5-10.0)
[2023-11-15 18:58] LABS: Alanine Aminotransferase 12 U/L (6-35); Albumin Level 4.1 g/dL (3.5-5.1); Alkaline Phosphatase 68 U/L (38-126); Anion Gap 8 mmol/L (4-12); Aspartate Amino Transferase 19 U/L (14-36); Bilirubin,Total 0.3 mg/dL (0.2-1.3); Blood Urea Nitrogen 4 mg/dL (7-17); Calcium 9.3 mg/dL (8.4-10.2); Carbon Dioxide 21 mmol/L (22-30); Chloride 105 mmol/L (98-107); Estimated Glomerular Filt Rate > 60; Glucose 111 mg/dL (65-110); Potassium 3.6 mmol/L (3.4-5.0); Sodium 134 mmol/L (137-145)
[2023-11-15 19:02] LABS: Influenza A QL RT-PCR Negative (Negative); Influenza B QL RT-PCR Negative (Negative); RSV RNA, RT-PCR Negative (Negative); SARS-CoV-2 RNA PCR Negative (Negative)
[2023-11-15 19:19] LABS: INR 0.9; Prothrombin Time 12.7 Seconds (11.1-14.7)
[2023-11-15 19:20] LABS: Partial Thromboplastin Time 29.5 Seconds (22.3-36.8)
[2023-11-15 19:31] LABS: D Dimer 1.01 ug/mL (<0.48)
[2023-11-15 19:42] LABS: Troponin I < 0.012 ng/mL (0.000-0.034)
[2023-11-15 22:01] LABS: Alveolar/Arterial O2 Gradient 71.3 mmHg; Base Excess ABG -5.2 mEq/l (+/-2.0); Fractional Inspired Oxygen 21 %; HCO3 ABG 16.6 mEq/l (22.0-26.0); Oxygen Content ABG 15.8 %vol (16.0-22.0); Oxygen Saturation ABG 98.5 % (95.0-100.0); Oxyhemoglobin 97.4 % THb (90.0-100.0); PO2 ABG 112.9 mmHg (80.0-100.0); PO2 FiO2 Ratio Arterial Blood 5.38 %; Total Hemoglobin 11.4 g/dL (12.0-18.0); pH ABG 7.485 (7.350-7.450)
[2023-11-15 22:03] LABS: Device ROOM AIR; Modified Allen's Test Pass; PCO2 ABG 22.5 mmHg (35.0-45.0); Site Drawn RIGHT RADIAL
== END 2023-11-15 22:32 | disposition home or self-care (01) ==
PROVIDERS: Nurse Practitioner Family; Emergency Provider Student in an Organized Health Care Education/Training Program; PCP Family Medicine
DX: O26.892 Other specified pregnancy related conditions, second trimester (principal); R06.02 Shortness of breath; Z20.822 Contact with and (suspected) exposure to COVID-19; O99.012 Anemia complicating pregnancy, second trimester; D64.9 Anemia, unspecified; Z3A.21 21 weeks gestation of pregnancy
CPT/HCPCS: 36415; 36600; 71275; 80053; 82805; 84484; 85025; 85380; 85610; 85730; 87637; 93005; 99284; Q9967

== ENCOUNTER 2024-01-11 13:32 | Outpatient (RCR) | payer OTHER, SELFPAY ==
[2024-01-11 15:04] LABS: Hematocrit 32.6 % (37.0-47.0); Hemoglobin 10.6 g/dL (12.0-15.0)
[2024-01-11 15:28] LABS: Glucose 1 Hour PP 50gm Dose 86 mg/dL
[2024-01-11 16:12] LABS: HIV 1/2 Ab P24 Ag Result Negative (Negative)
[2024-01-13] MEDS: RHO(D) IMMUNE GLOBULIN 300 MCG/2 ML SYRINGE IM (14:39)
[2024-02-27 15:15] VITALS: BP 106/68; PULSE 105
== END 2024-04-10 23:59 | disposition home or self-care (01) ==
LOC: ANHLAB 13:32
PROVIDERS: PCP Family Medicine; Visit Provider Advanced Practice Midwife
DX: Z11.4 Encounter for screening for human immunodeficiency virus [HIV] (principal); Z11.3 Encounter for screening for infections with a predominantly sexual mode of transmission; O36.0130 Maternal care for anti-D [Rh] antibodies, third trimester, not applicable or unspecified; Z3A.00 Weeks of gestation of pregnancy not specified
CPT/HCPCS: 36415; 59025; 82947; 85014; 85018; 85461; 86703; 86850; 86900; 86901; 90384; 96372; G0432; J2790

== ENCOUNTER 2024-02-05 14:32 | Emergency (ER) | payer OTHER, SELFPAY ==
--- NOTE | 2024-02-05 14:33 | ED.URI ---
HPI - URI/Sore Throat General Chief Complaint: Upper Respiratory Infection Stated Complaint: cough; sore throat; congestion Time Seen by Provider: 02/05/24 14:33 History of Present Illness HPI Narrative: Patient is a 23 year old female, estimated 34 weeks gestation here with cough. Patient notes cough began about 2 weeks ago along with the rest of her family. They were all sick with similar symptoms including a fever at that time. Her children were tested for COVID, influenza, RSV and strep at that time and found to be negative. She describes her entire family getting better other than her. She has had a persistent cough, occasionally causing her to throw up due to the cough. She notes associated nasal congestion. She has not had continued fevers. About 4 days ago she went to her PCP, he started her on amoxicillin for suspected bacterial infection. She has been taking the amoxicillin without improvement of symptoms. No new sick contacts. She notes that the constant coughing has caused her to have a sore throat as well as some chest wall discomfort with progressive coughing throughout the day. Patient does note asthma as a child which she grew out of, has not needed to use an inhaler for about 10 years. She has attempted to take multiple OTC cough suppressants and tylenol with minimal relief of her cough. She follows with [facility]EL[facility] Burns out of [place]. Related Data Home Medications Medication Instructions Recorded Confirmed vitamins no.144-folic 1 tablet PO DAILY 09/22/23 02/05/24 acid 400 mcg chewable tablet () amoxicillin 875 mg tablet 875 mg PO BID 02/05/24 02/05/24 Allergies Allergy/AdvReac Type Severity Reaction Status Date / Time No Known Allergies Allergy Unknown Verified 02/05/24 14:42 Review of Systems Review of Systems: All systems reviewed & are unremarkable except as noted in HPI and below PMFSH Past Medical History Medical History Anemia Depression Vaginal delivery Surgical History Surgical History History of appendectomy Hx of tonsillectomy Family History Family History Sibling MCAD deficiency Other IgA nephropathy Social History Social History Smoking status: Never smoker Substance use: never Spiritual care concerns: No Exam Narrative: GENERAL: Well-appearing, well-nourished, and in no acute distress. HEAD: Normocephalic, atraumatic. EYES: PERRLA and EOMI. ENT: Nares clear. Mucous membranes moist. Mild posterior pharyngeal erythema, no edema, exudates. NECK: Supple. CHEST: Non productive cough throughout exam. Faint wheeze bilaterally. No respiratory distress. HEART: Tachycardic. Normal peripheral pulses. ABDOMEN: Soft, nontender, gravid abdomen EXTREMITIES: Normal range of motion. No edema. SKIN: Warm, dry, no rash. NEURO: No focal deficits. Alert and oriented x3. PSYCH: Normal mood and affect. Course Course Emergency Course: Chart review performed. Patient here with cough. Reportedly saw her PCP recently for the same, is on amoxicillin. Triage vitals show HTN, tachycardia, tachypnea. Patient seen and evaluated. Non toxic appearing. Coughing throughout exam which I suspect is contributing to her tachycardia, HR down to the 1-teens already without intervention. Patient afebrile after initial viral sounding episode a couple of weeks ago. She is already receiving antibiotics for possible superimposed pneumonia however my suspicion for this is low. I do not believe benefits of xray will outweigh risk of radiation exposure to developing fetus as she is already on coverage for possible pneumonia outpatient. She does sound to have a component of bronchospasm with childhood history of asthma. Will do steroids and duoneb, both of which ramsey
[2024-02-05 14:34] VITALS: BP 141/84; PULSE 146; RESP 22; TEMP 36.4; O2SAT 98
[2024-02-05 14:41] VITALS: O2SAT 98
[2024-02-05 14:50] VITALS: PULSE 120; RESP 20; O2SAT 96
[2024-02-05] MEDS: IPRATROPIUM 0.5 MG/ALBUTEROL SULFATE 2.5 MG AMPUL.NEB 3 ML INHALATION (14:50)
[2024-02-05] MEDS: ONDANSETRON HCL ODT 4 MG TABLET PO (14:50)
[2024-02-05] MEDS: predniSONE 20 MG TABLET 40 MG PO (14:50)
[2024-02-05 15:05] VITALS: PULSE 110; RESP 20; O2SAT 98
[2024-02-05 15:23] LABS: Influenza A QL RT-PCR Negative (Negative); Influenza B QL RT-PCR Negative (Negative); RSV RNA, RT-PCR Negative (Negative); SARS-CoV-2 RNA PCR Negative (Negative)
[2024-02-05 15:35] VITALS: BP 107/77; PULSE 126; RESP 20; TEMP 36.6; O2SAT 96
== END 2024-02-05 15:42 | disposition home or self-care (01) ==
PROVIDERS: Emergency Provider Student in an Organized Health Care Education/Training Program; PCP Family Medicine
DX: O26.893 Other specified pregnancy related conditions, third trimester (principal); J06.9 Acute upper respiratory infection, unspecified; G93.31 Postviral fatigue syndrome; Z3A.34 34 weeks gestation of pregnancy; Z20.822 Contact with and (suspected) exposure to COVID-19
CPT/HCPCS: 87637; 99283; A9270; J7512

== ENCOUNTER 2024-03-19 10:34 | Observation (INO) | payer OTHER, SELFPAY | END 2024-03-19 13:34 | disposition home or self-care (01) | PROVIDERS: Admitting Provider Obstetrics & Gynecology; PCP Family Medicine; Visit Provider Obstetrics & Gynecology | DX: O47.1 False labor at or after 37 completed weeks of gestation (principal); Z3A.39 39 weeks gestation of pregnancy | CPT/HCPCS: G0378; G0379 ==

== ENCOUNTER 2024-03-26 11:04 | Inpatient (IN) | payer OTHER, SELFPAY ==
[2024-03-26] VITALS (23 sets, daily range): BP systolic 105–171; BP diastolic 63–141; PULSE 55–296; RESP 16; TEMP 36.3–37.5; O2SAT 87–99; BMI 34.8
--- NOTE | 2024-03-26 11:48 | LDADM ---
This patient, Ana Lilia Shields, was admitted to Labor/Delivery/Recovery 104 on 03/26/24 at 11:04. Plans for labor, pain management and were discussed with patient. Patient/family oriented to hospital policies and general routines including ID bracelet, bed and alarms, visiting hours, pain management, procedures, bathroom and other care routines, personal items, smoking policy, room service/diet and guest tray routines, security routines, and visiting hours. Patient/Family are encouraged to report perceived risks to care and to ask questions if they do not understand what they are told or what they should do. See OBIX for further documentation.
[2024-03-26 12:13] LABS: Basophils Percent Auto 0.2 % (0.2-1.2); Eosinophils Absolute Auto 0.1 K/mm3 (0-0.3); Eosinophils Percent Auto 1.6 % (0-4.4); Hematocrit 36.8 % (37.0-47.0); Hemoglobin 11.6 g/dL (12.0-15.0); Immature Granulocyte Absolute 0.03 K/mm3 (0.00-0.031); Immature Granulocyte Percent A 0.3 % (0-0.5); Lymphocytes Absolute Auto 1.22 K/mm3 (0.9-3.2); Lymphocytes Percent Auto 13.6 % (18.3-44.2); Mean Corpuscular HGB Conc 31.5 g/dl (32-36); Mean Corpuscular Hemoglobin 26.5 pg (26-34); Mean Corpuscular Volume 84.2 fl (80-100); Mean Platelet Volume 9.9 fl (7.4-10.4); Monocytes Absolute Auto 0.5 K/mm3 (0.1-0.6); Monocytes Percent Auto 5.9 % (2.6-8.5); Neutrophils Percent Auto 78.4 % (45.5-73.1); Platelet Count Result 208 k/mm3 (150-375); Red Blood Count 4.37 M/mm3 (4.2-5.4); Red Cell Distribution Width 18.5 % (11.5-14.5)
[2024-03-26] MEDS: miSOPROStol 25 MCG TABLET 50 MCG BUCCAL (12:22)
[2024-03-26 13:01] LABS: Rapid Plasma Reagin Non-Reactive (NonReactive)
[2024-03-26 13:03] LABS: HIV 1/2 Ab P24 Ag Result Negative (Negative)
[2024-03-26] MEDS: ONDANSETRON INJ 4 MG/2 ML VIAL IV PUSH (18:10)
[2024-03-26] MEDS: fentaNYL CITRATE INJ (*CRX) 100 MCG/2 ML VIAL 50 MCG IV PUSH (19:01)
[2024-03-26] MEDS: LACTATED RINGERS 1,000 ML 125 ML IV CONT (19:25)
[2024-03-26] MEDS: KETOROLAC 30 MG/ML VIAL (*BKC) IM (20:43)
--- NOTE | 2024-03-26 20:48 | PM.OBPRVD ---
OB - Vaginal Delivery Note Procedure Delivery date: 03/26/24 Induction method: Per Misoprostol Protocol Delivery monitor: External FHT and External Uterine Route of delivery: Episiotomy description: None Laceration Description: None Specimen: No Quantitative Blood Loss (ml): 175 Anesthesia type: None Disposition: Floor Complications: No immediate complications Baby Date of : 03/26/24 Time of : 20:28 Gestational Age by Date: 40 Infant gender: Male presentation: vertex position: Left Occiput Anterior Placenta delivery description: Spontaneous Cord Vessel Description: 3 Vessels and Delayed Cord Clamping score one minute: 8 score five minutes: 8 Narrative: mother and baby skin to skin in stable condition
[2024-03-26] MEDS: OXYTOCIN 10 UNITS/ML VIAL 20 UNITS IM (21:21)
[2024-03-26] MEDS: ACETAMINOPHEN 325 MG TABLET 650 MG PO (21:29)
--- NOTE | 2024-03-26 23:10 | OBPPTRN ---
Patient transferred to post room #283 via wheelchair. Support person present. Oriented to unit, room, information board, rooming in, admission packet and security measures. Patient verbalizes understanding.
[2024-03-27 04:30] VITALS: BP 102/66; PULSE 96; RESP 16; TEMP 36.6; O2SAT 98
[2024-03-27 05:20] LABS: Hematocrit 33.5 % (37.0-47.0); Hemoglobin 10.3 g/dL (12.0-15.0)
[2024-03-27] MEDS: IBUPROFEN 600 MG TABLET PO ×2 (05:28→12:40)
[2024-03-27] MEDS: ACETAMINOPHEN 325 MG TABLET 650 MG PO ×2 (05:28→12:39)
[2024-03-27 08:00] VITALS: BP 106/74; PULSE 102; RESP 18; TEMP 36.6; O2SAT 99
--- NOTE | 2024-03-27 09:05 | PC.NURSE ---
Mother verbalizes she is able to independently latch with appropriate positioning and alignment. She denies any nipple discomfort and is responsively . Infant is currently meeting outcomes for weight, output, jaundice, blood sugar and feeding frequencies of 8-12 times in 24 hours. Mother declines any additional assistance or education at this time. Mother is encouraged to call ( number on board) for assistance if her infant doesn?t latch, pain with latching, questions or concerns. Mother voiced understanding of information shared along with the mom/baby guide for an additional resource. Reported to the Primary RN.
--- NOTE | 2024-03-27 09:08 | P.PNOB_ITS ---
OB - PN: Subj Subjective Date/time seen: 03/27/24 09:08 Interval history: PPD#1 Doing well overall Some pain in left hip with flexion and rotation. difficulty walking Emptying bladder without issue , latching well OB - PN: Obj Data Labs 03/27/24 04:48 Labs: Laboratory Results - last 24 hr 03/26/24 03/26/24 03/27/24 11:43 11:44 04:48 WBC 9.0 RBC 4.37 Hgb 11.6 L 10.3 L Hct 36.8 L 33.5 L MCV 84.2 MCH 26.5 MCHC 31.5 L RDW 18.5 H Plt Count 208 MPV 9.9 Immature Gran % (Auto) 0.3 Neut % (Auto) 78.4 H Lymph % (Auto) 13.6 L [place] % (Auto) 5.9 Eos % (Auto) 1.6 Baso % (Auto) 0.2 Lymph # (Auto) 1.22 [place] # (Auto) 0.5 Eos # (Auto) 0.1 Baso # (Auto) 0.0 Abs Immat Gran (auto) 0.03 Absolute Neuts (auto) 7.0 H Absolute Nucleated RBC 0.000 Nucleated RBC % 0.0 RPR Non-reactive HIV 1&2 Ab/P24 Ag 4thGn Negative Blood Type B Negative B Negative Antibody Screen Positive TNP Antibody Identification Passive Due to RH Imm Glob Antigen Identification TNP DANIEL, IgG Interpret Neg DANIEL, Poly Interpret TNP DANIEL, Complement Interp Negative Screen Negative Baby's Blood Type O pos Baby's DANIEL Negative Doses of RhIg Required 1 OB - PN A/P Assessment and Plan (1) Hip pain, left: Code(s): M25.552 - Pain in left hip Status: Acute Assessment and Plan: - likely 2/2 to hyperflexion/rotation with pushing - will have PT evaluate while inpatient (2) (spontaneous vaginal delivery): Code(s): O80 - Encounter for full-term uncomplicated delivery Status: Acute Plan day: 1 Plan: routine care Time Spent With Patient Time: Total time spent is greater than 50% in coordination of care (as documented) at patient's floor/unit and/or counseling patient: Review of Systems Review of Systems: All systems reviewed & are unremarkable except as noted in HPI and below Exam Narrative: pain with passive rotation of left hip; full range of motion Const: General: comfortable and no acute distress Orientation/consciousness: patient oriented x3 Resp: Effort & Inspection: normal respiratory effort
[2024-03-27] MEDS: DOCUSATE SODIUM 100 MG CAPSULE PO ×2 (10:19→16:50)
[2024-03-27] MEDS: MULTIVIT/MIN/PREN/FOL AC/IRON TABLET 1 TAB PO (10:19)
[2024-03-27 12:15] VITALS: BP 100/63; PULSE 87; RESP 16; TEMP 36.4; O2SAT 100
[2024-03-27] MEDS: RHO(D) IMMUNE GLOBULIN 300 MCG/2 ML SYRINGE IM (12:35)
[2024-03-27 18:30] VITALS: BP 100/69; PULSE 89; RESP 16; TEMP 36.6; O2SAT 98
[2024-03-27] MEDS: CYCLOBENZAPRINE HCL 10 MG TABLET PO (20:54)
[2024-03-27] MEDS: LIDOCAINE 5% PATCH 1 PATCH TRANSDERM (22:00)
[2024-03-28] MEDS: ACETAMINOPHEN 325 MG TABLET 650 MG PO ×2 (06:57→13:02)
[2024-03-28] MEDS: IBUPROFEN 600 MG TABLET PO ×2 (06:59→12:58)
--- NOTE | 2024-03-28 07:27 | P.PNOB_ITS ---
OB - PN: Subj Subjective Date/time seen: 03/28/24 07:27 Interval history: PPD#2 Pain still present in hip, working with PT, walking with walker No improvement with flexeril Not cleared for d/c from PT Emptying bladder without issue , latching well OB - PN: Obj Data Labs 03/27/24 04:48 Labs: Laboratory Results - last 24 hr 03/27/24 04:48 Blood Type B Negative Antibody Screen TNP Screen Negative Baby's Blood Type O pos Baby's DANIEL Negative Doses of RhIg Required 1 OB - PN A/P Assessment and Plan (1) Hip pain, left: Code(s): M25.552 - Pain in left hip Status: Acute Assessment and Plan: - likely 2/2 to hyperflexion/rotation with pushing - continue to work with PT - no imaging needed at this time - keep inpatient for PT (2) (spontaneous vaginal delivery): Code(s): O80 - Encounter for full-term uncomplicated delivery Status: Acute Plan day: 2 Plan: routine care Time Spent With Patient Time: Total time spent is greater than 50% in coordination of care (as documented) at patient's floor/unit and/or counseling patient: Review of Systems Review of Systems: All systems reviewed & are unremarkable except as noted in HPI and below Exam Const: General: comfortable and no acute distress Orientation/consciousne ss: patient oriented x3 Resp: Effort & Inspection: normal respiratory effort
[2024-03-28 08:00] VITALS: BP 109/70; PULSE 98; RESP 18; TEMP 36.6; O2SAT 98
[2024-03-28] MEDS: DOCUSATE SODIUM 100 MG CAPSULE PO (08:48)
[2024-03-28] MEDS: MULTIVIT/MIN/PREN/FOL AC/IRON TABLET 1 TAB PO (08:48)
--- NOTE | 2024-03-28 09:00 | PC.NURSE ---
Mother verbalizes she is able to independently latch with appropriate positioning and alignment. She denies any nipple discomfort and is responsively . is currently meeting outcomes for weight, output, jaundice, blood sugar and feeding frequencies of 8-12 times in 24 hours. Mother declines any additional assistance, she had a question regarding having a gassy baby, she stated that he had one feeding where it was difficult to latch because baby was upset and seemed in pain. RN advised mother to calm baby, try burping and moving legs in a bicycling motion to help with gas relief and then try to latch . Mother is encouraged to call for assistance if her doesn?t latch, pain with latching, questions or concerns. Mother voiced understanding of information shared along with the mom/baby guide for an additional resource. Reported to the Primary RN.
[2024-03-28 18:40] VITALS: BP 119/71; PULSE 125; RESP 18; TEMP 37; O2SAT 99
[2024-03-29 07:50] VITALS: BP 113/79; PULSE 97; RESP 18; TEMP 36.6; O2SAT 100
[2024-03-29] MEDS: ACETAMINOPHEN 325 MG TABLET 650 MG PO ×2 (07:59→14:47)
[2024-03-29] MEDS: MULTIVIT/MIN/PREN/FOL AC/IRON TABLET 1 TAB PO (07:59)
[2024-03-29] MEDS: DOCUSATE SODIUM 100 MG CAPSULE PO (07:59)
--- NOTE | 2024-03-29 09:07 | PM.OBPNVD ---
OB - PN: Subj Subjective Date/time seen: 03/29/24 09:07 Interval history: PPD#3 Hip pain improved, still working with PT Emptying bladder without issue , latching well Ready for d/c today if cleared from PT OB - PN: Obj Data Labs 03/27/24 04:48 Labs: Laboratory Results - last 24 hr 03/27/24 04:48 Blood Type B Negative Antibody Screen TNP Screen Negative Baby's Blood Type O pos Baby's DANIEL Negative Doses of RhIg Required 1 OB - PN A/P Assessment and Plan (1) Hip pain, left: Code(s): M25.552 - Pain in left hip Status: Acute Assessment and Plan: - likely 2/2 to hyperflexion/rotation with pushing - continue to work with PT - no imaging needed at this time (2) (spontaneous vaginal delivery): Code(s): O80 - Encounter for full-term uncomplicated delivery Status: Acute Plan day: 2 Plan: routine care (discharge home if cleared by PT) Time Spent With Patient Time: Total time spent is greater than 50% in coordination of care (as documented) at patient's floor/unit and/or counseling patient: Review of Systems Review of Systems: All systems reviewed & are unremarkable except as noted in HPI and below Exam Const: General: comfortable and no acute distress Orientation/consciousness: patient oriented x3 Resp: Effort & Inspection: normal respiratory effort
--- NOTE | 2024-03-29 13:27 | PM.OBDSVD ---
DS: Admitting Diagnosis Discharge Date 03/29/24 Admitting Diagnosis labor DS: Discharge Diagnosis Discharge Diagnosis (1) (spontaneous vaginal delivery): Code(s): O80 - Encounter for full-term uncomplicated delivery Status: Acute (2) Hip pain, left: Code(s): M25.552 - Pain in left hip Status: Acute OB - DS: Summary OB Procedures : None OB Procedures Intrapartum: Spontaneous Vag Delivery OB Procedures: : None Peripartum Data Laceration Description: None Episiotomy description: None Time Spent with Patient Time attestation: Total time spent providing and/or coordinating discharge services: DS: Data Data Completed and Pending Labs on day of discharge: Labs from last 24 hours 03/27/24 04:48 Blood Type B Negative Antibody Screen TNP Screen Negative Baby's Blood Type O pos Baby's DANIEL Negative Doses of RhIg Required 1 Discharge Plan Discharge Attending physician on discharge: Raciel Menard Discharging Clinician: Raciel Menard Patient Disposition: Home, Self-Care Activity: no shower, as tolerated and pelvic rest Diet: as tolerated Discharge Instructions: Please follow up with outpatient physical therapy at [facility]. You can call to schedule your appointment at . Patient Instructions: Antibiotic Form Stand Alone Forms: General Discharge Information Follow-up/Referrals: Raciel Menard MD [Physician] - 4 Weeks Discharge Medications: New docusate sodium 100 mg Capsule 100 mg PO BID PRN (Reason: Constipation) Qty: 60 0RF ibuprofen 600 mg Tablet 600 mg PO Q6H PRN (Reason: Cramping) Qty: 30 0RF Continued 400 mcg Tablet,Chewable 1 tablet PO DAILY Discontinued ferrous sulfate 325 mg (65 mg iron) Tablet 325 mg PO DAILY Date of admission: 03/26/24 11:04 Primary Care Provider: Alex Perez Admitting Provider: Raciel Menard Attending physician on admission: Raciel Menard Condition: Stable
[2024-03-30 14:56] VITALS: BP 120/74; PULSE 98; RESP 18; TEMP 36.7; O2SAT 98
== END 2024-03-29 14:54 | disposition home or self-care (01) | DRG 560 ==
LOC: ANHLDR 17:05 → ANHOB2 23:24
PROVIDERS: Advanced Practice Midwife; Admitting Provider Obstetrics & Gynecology; PCP Family Medicine; Visit Provider Obstetrics & Gynecology
DX: O80 Encounter for full-term uncomplicated delivery (principal); Z3A.40 40 weeks gestation of pregnancy; Z37.0 Single live birth; M25.552 Pain in left hip
CPT/HCPCS: 36415; 85014; 85018; 85025; 85461; 86592; 86703; 86850; 86880; 86900; 86901; 86902; 90384; 97110; 97161; 97530; A9270; G0432; J1885; J2405; J2590; J2790; J3010; J7120

== ENCOUNTER 2024-06-13 08:59 | Outpatient (CLI) | payer OTHER, SELFPAY ==
[2024-06-13 09:46] LABS: Strep Group A RT-PCR NOT DETECTED (Negative)
[2024-06-13 09:55] LABS: SARS-CoV-2 RNA PCR Negative (Negative)
[2024-06-13 09:57] LABS: Influenza A QL RT-PCR Negative (Negative); Influenza B QL RT-PCR Negative (Negative)
== END 2024-06-13 09:00 | disposition home or self-care (01) ==
PROVIDERS: PCP Family Medicine; Visit Provider Family Medicine
DX: J02.9 Acute pharyngitis, unspecified (principal)
CPT/HCPCS: 87636; 87651

== ENCOUNTER 2025-04-10 14:29 | Outpatient (CLI) | payer OTHER, SELFPAY ==
--- NOTE | ~2025-04-10 | XR_ITS ---
EXAMINATION: XR chest 2V 04/10/2025 15:15 INDICATION: Dyspnea PROCEDURE: 2 view chest COMPARISON: No prior studies for comparison. FINDINGS: The lungs are clear. The cardiomediastinal silhouette is within normal limits. There are no pleural effusions. There is no pneumothorax suspected. IMPRESSION: 1: NO ACUTE CARDIOPULMONARY DISEASE. Reviewed, dictated and finalized at location O.
--- OUTSIDE RECORDS SUMMARY | 2025-04-10 14:36 | XMS_ITS | Clinical Summary ---
Author Organization [facility] Address [address] [place] [id number] Care Team Providers Care Plug Assembler Name Role Phone Alex Perez MD Primary Care Provider [phone] Social History Tobacco Use Types Packs/Day Years Used Date Smoking Tobacco: Never Assessed Comments Unknown Sex and Gender Information Value Date Recorded Sex Assigned at Not on file Legal Sex Female 4:20 PM CDT Gender Identity Not on file Sexual Orientation Not on file Plan of Treatment Health Maintenance Due Date Last Done Comments Annual Physical 2004 HPV Vaccines (1 - 3-dose series) 2016 Meningococcal B Vaccine (1 o f 2 - Standard) 2017 Hepatitis C 2019 DTaP, Tdap and Td Vaccines ( 1 - Tdap) 2020 Hepatitis B Vaccines (1 of 3 - 19+ 3-dose series) 2020 Cervical Cancer Screening Pa p Smear (Age 21 to 29) Every 3 Years 06/17/2023 06/17/2020 Cervical Cancer Screening 06/17/2023 COVID-19 Vaccine (2023-2 5 season) 2024 Meningococcal Vaccine Aged Out No merlyn nathaniel eligible based on patient's age to complete this topic Pneumococcal Vaccine: Pediat rics (0 to 5 Years) and At-Risk Patients (6 to 49 Years) Aged Out No longer eligi ble based on patient's age to complete this topic RSV Immunizations Under 20 Months Aged Out No longer eligible based on patient's age to complete this topic Insurance [employer] Care Teams Plug Assembler Relationship Specialty Start Date End Date Alex Perez MD [address] [place] [address] PCP - General FAMILY PRACTICE 03/31/24
--- OUTSIDE RECORDS SUMMARY | 2025-04-10 14:36 | XMS_ITS | Clinical Summary ---
Author Organization [facility] [address] [place] [address] Phone Care Team Providers Care Drawbridge Operator Name Role Phone Unavailable Primary Care Provider Unavailabl e Allergies No known active allergies Medications vit-iron fumarate-fa (RAFA ) 28 mg iron- 800 mcg Tablet Take 1 Tablet by mouth daily. Active ferrous fumarate (FERRETTS) 325 mg (106 mg iron) Tablet Take 325 mg by mouth. Active Active Problems Problem Noted Date Diagnosed Date Encounter for supervision of other normal , second trimester 07/24/2020 History of falling Family History Medical History Relation Name Comments Breast Cancer Neg Hx Colon Cancer Neg Hx Ovarian Cancer Neg Hx Social History Tobacco Use Types Packs/Day Years Used Date Smoking Tobacco: Never Smokeless Tobacco: Never Alcohol Use Standard Drinks/Week Comments Never 0 (1 standard drink = 0.6 oz pur e alcohol) Feeling Safe Answer Date Recorded Within the last year, have y ou been afraid of your partner or ex-partner? No 06/17/2020 Within the last year, have y ou been humiliated or emotionally abused in other ways by your partner or ex-partner? No Within the last year, have y ou been kicked, hit, slapped, or otherwise physically hurt by your partner or ex-partner? No 06/17/2020 Within the last year, have y ou been raped or forced to have any kind of sexual activity by your partner or ex-partner? No 06/17/2020 Social Connections Answer Date Recorded In a typical week, how many times do you talk on the phone with family, friends, or neighbors? More than three times a week 06/17/2020 How often do you get togethe r with friends or relatives? Twice a week 06/17/2020 How often do you attend chur ch or anabaptism services? Never 06/17/2020 Do you belong to any clubs o r organizations such as sabianist groups, unions, fraternal or athletic groups, or school groups? No 06/17/2020 How often do you attend meet ings of the clubs or organizations you belong to? Never 06/17/2020 Are you , , di vorced, , never , or living with a partner? Living with partner 06/17/2020 Financial Resource Strain Answer Date R ecorded How hard is it for you to pa y for the very basics like food, housing, medical care, and heating? Not hard at all 06/17/2020 Food Insecurity Answer Date Recorded Within the past 12 months, y ou worried that your food would run out before you got the money to buy more. Never true 06/17/20 20 Within the past 12 months, t he food you bought just didn't last and you didn't have money to get more. Never true 06/17/2020 Transportation Needs Answer Date Record ed In the past 12 months, has l ack of transportation kept you from medical appointments or from getting medications? No 10/2019 In the past 12 months, has l ack of transportation kept you from meetings, work, or from getting things needed for daily living? No 06/17/2020 Comments No Sex and Gender Information Value Date Recorded Sex Assigned at Not on file Legal Sex Female 9:28 AM CDT Gender Identity Not on file Sexual Orientation Not on file Last Filed Vital Signs Vital Sign Reading Time Taken Comments Blood Pressure 131/72 08/28/2020 2:30 PM PATIENT ACCOUNTS SPECIALIST Pulse 101 08/15/2020 4:51 PM PATIENT ACCOUNTS SPECIALIST Temperature 36.3 C (97.4 F) 08/15/2020 4:51 PM PATIENT ACCOUNTS SPECIALIST Respiratory Rate 18 08/15/2020 4:51 PM PATIENT ACCOUNTS SPECIALIST Oxygen Saturation 99% 08/15/2020 4:51 PM PATIENT ACCOUNTS SPECIALIST Inhaled Oxygen Concentration - - Weight 87.1 kg (192 lb 1.6 oz) 08/28/2020 2:30 P M PATIENT ACCOUNTS SPECIALIST Height 160 cm (5' 3) 08/28/2020 2:30 PM PATIENT ACCOUNTS SPECIALIST Body Mass Index 34.03 08/28/2020 2:30 PM PATIENT ACCOUNTS SPECIALIST Plan of Treatment Health Maintenance Due Date Last Done Comments HPV VACCINES (1 - 3-dose series) 2016 DTAP/TDAP/TD VACCINES (1 - Tdap) 2020 HEPATITIS B VACCINES (1 of 3 - 19+ 3-dose series) 04/16 CHLAMYDIA SCREENING (ANNUAL) 11-24 YEARS 06/17/2021 06/17/2020 CERVICAL CANCER SCREENING 2022 HPV/Cotest (21-29) 2022 PAP SMEAR 2022 INFLUENZA VACCINE (#1) 2025 Procedures Procedure Name Priority Date/Time Associated Diagnosis Comments GC/CHLAMYDIA, GENITAL Routine 06/17/2020 4:09 PM PATIENT ACCOUNTS SPECIALIST Encounter for supervision of other normal , second trimester from Last 3 Months or Most Recently Relevant to Health Maintenance Results * GC/CHLAMYDIA, GENITAL (06/17/2020 4:09 PM PATIENT ACCOUNTS SPECIALIST) CHLAMYDIA DNA AMPLIFICATION NOT DETECTED Not Detected 06/18/2020 1:06 PM PATIENT ACCOUNTS SPECIALIST [facility] GC DNA AMPLIFICATION NOT DETECTED Not Detected 06/18/2020 1:06 PM PATIENT ACCOUNTS SPECIALIST [facility] Genital SWAB OF ENDOCERVIX / Unknown Collection / Unknown 06/17/2020 4:09 PM PATIENT ACCOUNTS SPECIALIST 06/17/2020 6:20 PM PATIENT ACCOUNTS SPECIALIST Narrative [facility] - 06/18/2020 1:06 PM PATIENT ACCOUNTS SPECIALIST Results should not be used for the evaluation of suspected sexual abuse or for other medico-legal indications. The only legally accepted results are from culture. Results cannot be used to assess therapeutic success or failure since nucleic acids may persist following antimicrobial therapy. Maria Eugenia Conde CNM MICRO - GEN ORDERABLES CO M Final Result [facility] CLIA# [id number] [address] [place] [address] from Last 3 Months or Most Recently Relevant to Health Maintenance Insurance [employer] Advance Directives For more information, please contact: [phone] * Full Code (Latest Code Status on File) Date Activated Date Inactivated Comments 08/15/2020 5:39 PM 08/16/2020 12:58 AM
--- OUTSIDE RECORDS SUMMARY | 2025-04-10 14:36 | XMS_ITS | Clinical Summary ---
Author Organization [facility] Address [address] [place] [address] Care Team Providers Care Needle Valve Operator Name Role Phone Alex Perez MD Primary Care Provide r Laura Parker Unavailable [phone] Allergies Active Allergy Reactions Criticality Noted Date Comments Nickel Swelling Medium 07/29/2021 Medications vit 67-pudp-qagog-d mclain 27mg iron- 800 mcg-250 mg capsule Take 1 capsule by mouth daily Active ferrous sulfate 325 mg (65 mg of elemental iron) tabletIndicatio ns:Iron Deficiency Anemia Take 65 mg of elemental iron by mouth daily with breakfast Active mv-min/vit C/elderber/herb 124 (AIRBORNE ELDERBERRY ORAL) Take 1 tablet by mouth daily Active omega-3 fatty acids-fish oil 300-1,000 mg capsule Take 2 g by mouth daily Active cholecalciferol (VITAMIN D-3) 2000 unit capsule Take 1 capsule (2,000 Units total) by mouth daily 30 capsule 2 Active Active Problems Problem Noted Date Diagnosed Date Rupture of anterior cruciate ligament of right k nee 09/25/2021 Overview (09/25/2021): Added automatically from request for surgery [id number] Tear of lateral meniscus of right knee 2 Overview (09/25/2021): Added automatically from request for surgery [id number] Esotropia, accommodative 09/24/2014 Hyperopic astigmatism 09/24/2014 Surgical History Surgery Date Site/Laterality Comments APPENDECTOMY TONSILLECTOMY DENTAL SURGERY as a child Medical History Medical History Date Comments Anemia Family History Medical History Relation Name Comments Arthritis Other Cancer Other Relation Name Status Comments Other Social History Tobacco Use Types Packs/Day Years Used Date Smoking Tobacco: Never Smokeless Tobacco: Never Tobacco Cessation:Counseling Given: Not Answered AUDIT-C Answer Date Recorded Q1: How often do you have a drink containing alc ohol? Never 12/10/2021 Average Number of Drinks Not on file 022 Q3: How often do you have si x or more drinks on one occasion? Never 12/10/2021 Comments No Sex and Gender Information Value Date Recorded Sex Assigned at Not on file Legal Sex Female 7:54 PM WORK FROM HOME Gender Identity Not on file Sexual Orientation Not on file Obstetrics History Last Filed Vital Signs Vital Sign Reading Time Taken Comments Blood Pressure 105/73 12/12/2023 2:40 PM CDT Pulse 70 02/04/2022 1:57 PM CDT Temperature 36.3 C (97.4 F) 12/10/2021 12:10 PM CDT Respiratory Rate 16 12/10/2021 12:10 PM CDT Oxygen Saturation 100% 12/10/2021 12:10 PM CDT Inhaled Oxygen Concentration - - Weight 90.3 kg (199 lb) 12/12/2023 2:13 PM CDT Height 162.6 cm (5' 4) 12/12/2023 2:13 PM CDT Body Mass Index 34.16 12/12/2023 2:13 PM CDT Plan of Treatment Health Maintenance Due Date Last Done Comments Cervical Cancer Screening 2001 Depression Screening 2001 Hepatitis C Screening 2001 DTaP/Tdap/Td Vaccine (1 - Tdap) 2012 Varicella Vaccines (1 of 2 - 13+ 2-dose series) 2014 HPV Vaccines (1 - 3-dose series) 2016 Meningococcal B Vaccine (1 o f 2 - Standard) 2017 Hepatitis B Screening 2019 Regular Well Visit/Exam 18-64 2019 Influenza Vaccine (#1) 2025 Pneumococcal vaccine <65 Aged Out No longer eligible based on patient's age to complete this topic Medical Devices Implanted Type Area Drawing Kiln Supervisor Device Identifier Shelf Expiration Date Model / Serial / Lot [employer] Tightrope 14mm Attachable Round Concave Button Fixation [id number] - [id number] Implanted:Qty: 1 on 12/10/2021 by Denis Dunham MD at [facility] Right: Knee [employer] 06/14/2026 AR-1588TB-[id number] / / [id number] [employer] Swivelock C 4.75mm 19.1mm Closed Eyelet Vent [place] Suture [id number] - [id number] Implanted:Qty: 1 on 12/10/2021 by Denis Dunham MD at [facility] Right: Knee [employer] 08/14/2025 [id number] / / [id number] Lif[employer]et Flexigraft Graftlink 7.5-10.5mm 60-80mm Frozen Allograft [facility] - [id number] - [id number] Implanted:Qty: 1 on 12/10/2021 by Denis Dunham MD at [facility] Right: Knee [employer] 06/03/2024 [facility] / [id number] / Insurance [facility] Care Teams Needle Valve Operator Relationship Specialty Start Date End Date Alex Perez MD [address] [place] [address] PCP - General Family Medicine 07/28/21 Laura Parker PA [address] [place] [address] Physician Chemist Intern Orthopedic Surgery 12/10/21
--- OUTSIDE RECORDS SUMMARY | 2025-04-10 14:36 | XMS_ITS | Clinical Summary ---
Author Organization [facility] Address [address] [place] [address] Care Team Providers Care Powder Core Tester Name Role Phone Unavailable Primary Care Provider Unavailabl e Source Comments [facility],non-owned Affiliates and Associated Physician Practices is amultiple site organization consisting of ambulatory clinics and hospital sitesin [place], [place], [place] and [place]. This disclosure is being madepursuant to the Care Everywhere program and may not contain all information available regarding this patient. Last updated 18.[facility] Allergies No known active allergies Medications * Be aware that medications may not be up to date on this document. Alwaysverify current medications with the patient. diphenhydrAMINE (BENADRYL) 12.5 MG/5ML solution Take 7.5 mL by mouth every 6 hours as needed for Itching. Active PREDNISONE PO Take 15 mL by mouth. 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 Gender Identity Not on file Sexual Orientation Not on file Last Filed Vital Signs Vital Sign Reading Time Taken Comments Blood Pressure 96/64 12/29/2009 11:23 PM CDT Pulse 84 12/30/2009 1:15 AM CDT Temperature 36.6 C (97.8 F) 12/30/2009 1:15 AM CDT Respiratory Rate 20 12/30/2009 1:15 AM CDT Oxygen Saturation 100% 12/29/2009 11:23 PM CDT Inhaled Oxygen Concentration - - Weight 29.9 kg (65 lb 14.7 oz) 12/29/2009 11:23 PM CDT Height - - Body Mass Index - - Plan of Treatment Health Maintenance Due Date Last Done Comments HIV SCREENING 2016 HPV VACCINE (1 - 3-dose series) 2016 CHLAMYDIA/GONORRHEA SCREENING 2017 MENINGOCOCCAL (Group B) VACC INE SHARED DECISION-MAKING (1 of 2 - Standard) 2017 HEPATITIS C SCREENING 05/04/2019 DTAP/TDAP/TD VACCINES (1 - Tdap) 2020 HEPATITIS B VACCINE (1 of 3 - 19+ 3-dose series) 2020 PAP SMEAR 2022 COVID-19 VACCINE (1 - 2023-2 5 season) 2024 DEPRESSION SCREENING 08/15/2024 INFLUENZA VACCINE (#1) 2025 ZOSTER VACCINE (1 of 2) 2051 HIB VACCINE Aged Out No longer eligi ble based on patient's age to complete this topic MENINGOCOCCAL GROUPS A/C/Y/W VACCINE Aged Out No longer eligible b ased on patient's age to complete this topic PNEUMOCOCCAL VACCINE Aged Out No long er eligible based on patient's age to complete this topic Insurance [facility]
[2025-04-10 15:29] LABS: Hematocrit 43.4 % (35.0-49.0); Hemoglobin 13.9 g/dL (12.0-15.0); Immature Granulocyte Percent A 0.3 % (0.0-0.0); Lymphocytes Absolute Auto 1.56 K/mm3 (1.10-4.50); Mean Corpuscular HGB Conc 32.0 g/dL (32-36); Mean Corpuscular Hemoglobin 26.4 pg (27.0-31.0); Mean Corpuscular Volume 82.5 fL (78.0-102.0); Nucleated Red Blood Cells Absolute Auto 0.00 K/mm3 (0.00-0.00); Nucleated Red Blood Cells Perc 0.0 % (0-0.0); Platelet Count Result 370 K/mm3 (150-420); Red Blood Count 5.26 M/mm3 (4.20-5.40); White Blood Count 7.1 K/mm3 (4.8-10.8)
[2025-04-10 16:23] LABS: Ferritin 8.09 ng/mL (6.24-137)
[2025-04-10 16:40] LABS: Iron 83 ug/dL (37-170)
[2025-04-10 16:49] LABS: Percent Iron Saturation 21 % (20-50)
== END 2025-04-10 14:30 | disposition home or self-care (01) ==
PROVIDERS: PCP Family Medicine; Visit Provider Family Medicine
DX: R06.00 Dyspnea, unspecified (principal); E61.1 Iron deficiency
CPT/HCPCS: 36415; 71046; 82728; 83540; 83550; 85025

== ENCOUNTER 2025-08-05 05:32 | Emergency (ER) | payer OTHER, SELFPAY ==
[2025-08-05 05:35] VITALS: BP 112/79; PULSE 117; RESP 16; TEMP 37.2; O2SAT 98
--- OUTSIDE RECORDS SUMMARY | 2025-08-05 05:35 | XMS_ITS | Clinical Summary ---
Author Organization [facility] Address [address] [place] [address] Care Team Providers Care Optomechanical Technician Name Role Phone Alex Perez MD Primary Care Provider Social History Tobacco Use Types Packs/Day Years [...] HPV Vaccines (1 - 3-dose series) 2016 Hepatitis C 2019 DTaP, Tdap and Td Vaccines ( 1 - Tdap) 2020 Hepatitis B Vaccines (1 of 3 - 19+ 3-dose series) 2020 Cervical Cancer Screening Pa p Smear (Age 21 to 29) Every 3 Years 06/17/2023 06/17/2020 Cervical Cancer Screening 06/17/2023 COVID-19 Vaccine ( - 2024-2 6 season) 2025 Influenza Adult (#1) 2025 Hepatitis A Vaccines Aged Out No long er eligible based on patient's age to complete this topic Meningococcal B Vaccine Aged Out No l onger eligible based on patient's age to complete this topic Meningococcal Vaccine Aged Out No merlyn nathaniel [...] patient's age to complete this topic Insurance [employer] Care Teams Optomechanical Technician Relationship Specialty Start Date End Date Alex Perez MD [address] [place] [address] PCP - General FAMILY PRACTICE 03/31/24
--- OUTSIDE RECORDS SUMMARY | 2025-08-05 05:35 | XMS_ITS | Data Portability ---
Author Organization [facility] Address [address] [place] [address] Care Team Providers Care Cnc Set Up Operator Name Role Phone LÓPEZ FAIRBANKS Primary Care Provider Assessment Encounter Date Assessment Date Assessment LastModified by Organization Details LastModified Time 03/02/2024 03/02/2024 Patient is _36__weeks . Discussed plan. [email or web address] Not available 03/02/2024 14:40:13 03/23/2024 03/23/2024 Patient is _39__weeks . Discussed plan. [email or web address] Not available 03/23/2024 15:03:57 Plan of Treatment Reminders Order Date Submit Date Provider Last Modified By Organization Details Last Modified Time Details Appointments None recorded. Lab culture, urine 2023 024 [facility] (Lab), [address], [place], [address], 4 17:05:50 urinalysis, dipstick 2023 024 [email or web address] [address] [place], [address], [place], [address], 14:43:03 streptococc us group B, culture, unspecified specimen 2023 024 [facility] (Lab), [address], [place], [address], 17:05:50 Referral None recorded. Procedures None recorded. Surgeries None recorded. Imaging None recorded. Medication Orders cephalexin 500 mg capsule 2023 024 [facility]/Pharmacy #[id number], [address] [place], [address], 15:20:54 Patient TargetsNo targets recorded. Patient InstructionsNo instructions recorded. Reason for Referral None Reported. Results Created Date Observation Date Name Description Value Unit Range Abnormal Flag Note LastModifiedBy Organization Detail LastModifiedTime 02/17/2002/17/2024 HEMAT OCRIT (HCT) HCT 31.8 % (based on docume nted legal sex) 34.0-4 5.0 low Not Available [facility] (Lab) [address] [facility], [place], [address], 02/18/2024 03:37:33 02/17/20 24 02/17/2024 HEMOG LOBIN (HGB) HGB 9.5 g/dL (based on docume nted legal sex) 11.6-1 5.4 low Not Available [facility] (Lab) [address] [facility], [place], [address], 02/18/2024 03:37:34 03/02/20 24 03/02/2024 CULTU RE: URINE result report SEE RESULT S BELOW Test: Cultu re: Urine Speci men Sourc e: Urine - Clean Catch Speci men Type: Urine Speci men Date: 2023 1605 Resul t Date: 2023 0558 Resul t Statu s: Final resul t Abnor mal: No Resul ting Lab: [facility] [address] [facility] [address] Tel: CULTU RE ----- ----- ----- --- Organ ism(s ) consi stent with uroge nital or skin margie . Repea t cultu re if sympt oms indic ate. Not Available [facility] (Lab) [address] [place], [address], 03/05/2024 17:05:50 03/02/20 24 03/02/2024 CULTU RE: GROUP B STREP SCREE N, REFLE X SUSCE PTIBI LITY result report SEE RESULT S BELOW Test: Cultu re: Group B Strep , Refle x Susce ptibi lity ([facility]/ [facility] ) Speci men Sourc e: Vagin a/Rec randell Speci men Type: Vagin al/Re ctal Speci men Date: 2023 1605 Resul t Date: 2023 1602 Resul t Statu s: Final resul t Abnor mal: No Resul ting Lab: [facility] [address] [facility] [address] [facility] [address] Tel: CULTU RE ----- ----- ----- --- No Group B strep isola ileana at 2 days (lesley ctive broth enhan cemen t) Not Available [facility] (Lab) [address] [facility], [place], [address], 03/05/2024 17:05:50 03/02/20 24 03/02/2024 urina lysis , dipst ick Leukocytes +3 Not Available Aliyah graham [address], [place], [address], 03/02/2024 14:39:58 03/02/20 24 03/02/2024 urina lysis , dipst ick Nitrite normal Not Available [place] [address], [place], [address], 03/02/2024 14:39:58 03/02/20 24 03/02/2024 urina lysis , dipst ick Urobilinogen normal Not Available Elli sanders [address], [place], [address], 03/02/2024 14:39:58 03/02/20 24 03/02/2024 urina lysis , dipst ick Protein trace Not Available [place] [address], [place], [address], 03/02/2024 14:39:58 03/02/20 24 03/02/2024 urina lysis , dipst ick pH 8 Not Available [place] [address], [place], [address], 03/02/2024 14:39:58 03/02/20 24 03/02/2024 urina lysis , dipst ick Blood trace Not Available [place] [address], [place], [address], 03/02/2024 14:39:58 03/02/20 24 03/02/2024 urina lysis , dipst ick Specific [place] 1.020 Not Available [facility] [address], [place], [address], 03/02/2024 14:39:58 03/02/20 24 03/02/2024 urina lysis , dipst ick Ketone +3 Not Available [place] [address], [place], [address], 03/02/2024 14:39:58 03/02/20 24 03/02/2024 urina lysis , dipst ick Bilirubin normal Not Available [facility] [address], [place], [address], 03/02/2024 14:39:58 03/02/20 24 03/02/2024 urina lysis , dipst ick Glucose normal Not Available [place] [address], [place], [address], 03/02/2024 14:39:58 03/02/20 24 03/02/2024 urina lysis , dipst ick Appearance normal Not Available Aliyah graham [address], [place], [address], 03/02/2024 14:39:58 03/02/20 24 03/02/2024 urina lysis , dipst ick Color normal Not Available [place] [address], [place], [address], 03/02/2024 14:39:58 02/03/20 24 02/03/2024 US, obste tric, follo w-up No observ ation record ed. GIRMA Cabrales [address], [place], [address], 02/07/2024 10:41:13 02/03/20 24 02/03/2024 US, obste tric, follo w-up No observ ation record ed. triston [place] [address], [place], [address], 02/03/2024 17:33:08 Result Notes None recorded. Problems Name Problem SNOMED Code Status Onset Date Resolution Date Notes Provider Name and Address Organization Details Recorded Time History of anemia 494524472 Completed 200mg IV Iron once weekly x3 weeks Anat Jean CNM [address], [place], [address], [facility] 4 14:45:17 Family history of Congenit al heart disease 306655844 Completed FOB with septal defect, needs echo at 24 weeks Anat Jean CNM [address], [place], [address], [facility] 4 14:45:17 Prophyla ctic immunoth erapy Completed rhogam at 28wks - received 01/13/24 Anat Jean CNM [address], [place], [address], [facility] 4 14:45:17 Dilatati on of renal pelvis Completed 4mm bilatera lly at 20 weeks, resolved at 32 wks Anat Jean CNM [address], [place], [address], [facility] 4 14:45:17 Placenta circumva llata 2934207 Completed serial growths Anat Jean CNM [address], [place], [address], [facility] 4 14:45:17 Family history of Congenit al heart disease 799963808 Active FOB with septal defect, needs echo at 24 weeks Anat Jean CNM [address], [place], [address], [facility] 4 14:45:17 Placenta circumva llata 3795377 Active serial growths Anat Jean CNM [address], [place], [address], [facility] 4 14:45:17 Dilatati on of renal pelvis Active 4mm bilatera lly at 20 weeks, resolved at 32 wks Anat Jean CNM [address], [place], [address], [facility] 4 14:45:17 Pregnanc y 29365827 Completed 202303/29/2024 Gabe chung, [facility] 4 14:55:48 Urinary tract infectio n in pregnanc y 742498900 Completed 2023 Ecoli- tx Macrobid bid x5 Anat Jean CNM [address], [place], [address], [facility] 4 14:45:17 Problem Notes None recorded. Procedures Surgical History Date Name Laterality Status Provider Name and Address Organization Details Recorded Time 2 operative procedure on knee completed Irma Gutierrez [facility] 08/24/2023 15:47:58 4 operative procedure on knee completed Irma Hernandezzach [facility] 08/24/2023 15:47:41 Imaging Results None recorded. Procedure Notes None recorded. Medical Equipment None Reported. Allergies No known drug allergies Medications Name Sig Start Date Stop Date Status Note LastModified by Organization Details LastModified Time clindamycin HCl 300 mg capsule 300 MG ORALLY EVERY 8 HOURS FOR 7 DAYS 08/24 completed Not Available Not Available Not Available azithromyci n 250 mg tablet TAKE 2 TABLETS BY MOUTH TODAY, THEN TAKE 1 TABLET DAILY FOR 4 DAYS 08/24 completed Not Available Not Available Not Available ondansetron HCl 8 mg tablet 08/24 completed Not Available Not Available Not Available ondansetron HCl 4 mg tablet TAKE 1 TABLET EVERY 4 TO 6 HOURS BY MOUTH active Not Available Not Available No t Available prednisone 20 mg tablet TAKE 2 TABLETS DAILY FOR 5 DAYS 02/16 completed Not Available Not Available Not Available acetaminoph en 500 mg tablet 500 MG ORALLY EVERY 6 HOURS NEEDED FOR PAIN FOR 7 DAYS 08/24 completed Not Available Not Available Not Available amoxicillin 875 mg tablet 02/16 completed Not Available Not Available Not Available cephalexin 500 mg capsule Take 1 capsule every 12 hours by oral route for 7 days. 03/09 completed Not Available Not Available Not Available polymyxin B sulfate 10,000 unit-trimet hoprim 1 mg/mL eye drops INSTILL 1 DROP INTO RIGHT EYE EVERY 3 HOURS FOR 7 DAYS WHILE AWAKE DO NOT EXCEED 6 DOSES IN 24 HOURS 08/24 completed Not Available Not Available Not Available albuterol sulfate HFA 90 mcg/actuati on aerosol inhaler INHALE 2 PUFFS 4 TIMES DAILY NEEDED FOR SHORTNESS OF BREATH 02/16 completed Not Available Not Available Not Available nitrofurant oin monohydrate /macrocryst als 100 mg capsule TAKE 1 CAPSULE BY MOUTH TWICE A DAY FOR 5 DAYS 10/12 completed Not Available Not Available Not Available iron active Not Available Not Availa ble Not Available Unisom (doxylamine ) 02/16 completed Not Available Not Available Not Available active Not Available Not Avai lable Not Available Vitamin B6 02/16 completed Not Available Not Available Not Available Vitals Date Recorded Body weight Provider Name an d Address Organization Details Last Updated DateTime 02/17/2024 33328.559659 g Jordan ELLSWORTH [address], [place], [address], [facility] 02/17/2024 16:19:47 Date Recorded Body height Body mass index (BMI) Systolic And Diastolic Provider Name and Address Organization Details Last Updated DateTime 02/17/2024 162.56 cm 34.6 kg/m2 107/74 mm[Hg] [facility] 02/17/2024 16:10:46 Date Recorded Body height Body mass index (BMI) Body weight Systolic And Diastolic Provider Name and Address Organization Details Last Updated DateTime 03/02/2024 162.56 cm 35 kg/m2 31011.843 48 g 115/78 mm[Hg] Aleta Bradshaw [facility] 03/02/2024 14:31:26 Date Recorded Body height Body mass index (BMI) Body weight Systolic And Diastolic Provider Name and Address Organization Details Last Updated DateTime 03/09/2024 162.56 cm 35.1 kg/m2 06565.56 g 107/75 mm[Hg] [facility] 03/09/2024 15:20:46 Date Recorded Body height Provider Name an d Address Organization Details Last Updated DateTime 03/16/2024 162.56 cm [facility] 03/16/2024 14:32:23 Date Recorded Body height Body mass index (BMI) Body weight Systolic And Diastolic Provider Name and Address Organization Details Last Updated DateTime 03/23/2024 162.56 cm 34.8 kg/m2 96299.25 g 125/84 mm[Hg] [facility] 03/23/2024 14:39:42 Social History Question Answer Notes LastModified by Organizat ion Details LastModified Time Tobacco Smoking Status [facility] 08/24/2023 15:48:55 If You Are , What Was Your Level Of Alcohol Consumption Prior To ? None Information not available 08/24/2023 Are You Blind Or Do You Have Difficulty Seeing? No [email or web address] Information n ot available 01/16/2024 What Is Your Level Of Caffeine Consumption? None Information not available 08/24/2023 In The 14 Days Before Symptom Onset, Have You Had Close Contact With A Laboratory-confirm ed COVID-19 While That Case Was Ill? No Information n ot available 08/24/2023 In The 14 Days Before Symptom Onset, Have You Had Close Contact With A Person Who Is Under Investigation For COVID-19 While That Person Was Ill? No Information not available 08/24/2023 Have You Been To An Area Known To Be High Risk For COVID-19? No Information not available 08/24/2023 Are You Deaf Or Do You Have Serious Difficulty Hearing? No [email or web address] Information not available 01/16/2024 Do You Use Your Seat Belt Or Car Seat Routinely? Yes [email or web address] Information not available 01/16/2024 Do You Have Smoke And Carbon Monoxide Detectors In Your Home? Yes [email or web address] Information not available 01/16/2024 Do You Use Sunscreen Routinely? Yes [email or web address] Information not available 01/16/2024 Has Tobacco Cessation Counseling Been Provided? No Information not available 08/24/2023 Do You Have Difficulty Walking Or Climbing Stairs? No Information not available 01/16/2024 Sex: Unknown Functional Status Question Answer Note LastModified by Organizat ion Details LastModified Time Do you use any illicit or recreational drugs? No Information not available 08/24/2023 Do you or have you ever used any other forms of tobacco or nicotine? No Information not available 08/24/2023 What is your level of alcohol consumption? None Information not available 08/24/2023 Are you able to walk independently without assistance or assistive devices? YESWOREST [email or web address] Information not available 01/16/2024 Are you able to care for yourself independently? Yes Information not available 01/16/2024 Do you have difficulty dressing, bathing, grooming, or toileting? No [email or web address] Information not available 01/16/2024 What is your exercise level? Moderate Information not available 08/24/2023 Mental Status None recorded. Family History Relationship Description Onset Age of this Age Resolved Age Notes LastModified by Organization Details LastModified Time Sister Genetic disease [email or web address] Not available 2023 15:49:40 Sister Seizure [email or web address] Not available 0 08/24/2023 15:49:52 Medical History Condition Response Allergies (Food, seasonal, environmental ) N Other N Drug/Latex Allergies/Reactions N Blood Transfusion N Breast Cancer N Dermatologic Disorders N Lung Disease N Defects or Inherited Disease N Breast Problem N Gestational Diabetes N Hematologic disorders N Anesthesia Complications N History of STI N Deep Vein Thrombosis N Polycystic ovary syndrome N Anxiety Disorder N Autoimmune disease N Arthritis N Polyps N Infertility N Acid Reflux (GERD) N History of abnormal pap N Cancer N Varicosities N Stroke N Neurologic/Epilepsy N Endometriosis N High Cholesterol N Fibromyalgia N Headaches N Kidney Disease N Heart Problems N Thyroid Problems N Kidney or Bladder Problems N GI Problems N Eating Disorder N Anemia N Art (IVF or FET) N Psychiatric Illness N Ovarian Cancer N Diabetes N Pulmonary (TB, Asthma) N Hepatitis/Liver Disease N No Past Medical History N Eczema N Urinary Tract Infection N Abuse/Domestic Violence N Asthma N Trauma/Violence N Depression/ depression N Heart Disease N Pre-Eclampsia N Hypertension N Osteoporosis N Thrombophilias N Gynecological History Statement/Question Response Date of Last Mammogram Date of LMP 06/20/2023 Sexually Active? N STIs/STDs N Date of DEXA bone scan HPV Vaccine N Date of Last Pap Smear Sexual Problems? N Current Control Method Desired Control Method None Obstetrics History GPAL:G 3 P 3 0 0 3 Type Value Full Term 3 Living 3 Total 3 Past Encounters Encounter ID Performer Location Encounter Start Date Encounter Closed Date Diagnosis/Indication Diagnosis SNOMED-CT Code Diagnosis ICD10 Code Diagnosis IMO Codes Diagnosis Note [id number] Dawson Thayer MD [place] [address] [address] 08/24/2023 15:15:27 08/24/2023 15:43:12 screening 121163204 Z36.87 Z3A.09 [id number] RUBEN COTA MD [place] [address],[place] [address] 08/24/2023 15:29:45 08/26/2023 11:58:44 test positive 441312568 Z32.01 1. Exam today within normal limits.2. Ultrasound today confirms GA and viability. EDC 03/26/24 by LMP . GC/Clamydi a testing done: will f/u as indicated. 4. ACOG guidelines and plan of care for reviewed with patient. All questions answered.5 . Return to office at 12 weeks for new OB visit6. Will need new OB labs at next visit.7. Genetic screening: desires. History of anemia 670043 002 Z86.2 - required Fe infusions during prior pregnancie s- will order Fe panel with new OB labs Family his tory of Congenital heart disease 694346436 Z82.79 - FOB with hole in heart, unsure of details, never needed surgery- will need echo ~24 weeks [id number] Dawson Thayer MD [place] [address],[place] [address] 09/14/2023 15:28:27 09/14/2023 16:02:45 screening 711416465 Z36.82 Z3A.12 [id number] RUBEN COTA MD [place] [address],[place] [address] 09/14/2023 15:28:46 09/14/2023 17:12:56 Anemia 033837603 D64.9 Routine an tenatal care 245741323 Z34.90 Family his tory of Congenital heart disease 312209690 Z82.79 - FOB with hole in heart, unsure of details, never needed surgery- will need echo ~24 weeks Gestation period, 12 weeks 02952044 Z3A.12 [id number] RUBEN COTA MD [place] [address],[place] [address] 10/12/2023 16:33:33 10/20/2023 15:05:02 Asymptomatic bacteriuria in 05523438 O23.12 History of anemia 905832 002 Z86.2 Gestation period, 17 weeks 88447439 Z3A.17 [id number] Dawson Thayer MD [place] [address],[place] [address] 11/09/2023 15:53:00 11/09/2023 17:25:04 screening for malformation 792650832 Z36.3 Z3A.20 [id number] RUBEN COTA MD [place] [address],[place] [address] 11/09/2023 15:53:18 11/10/2023 12:35:44 Dilatation of renal pelvis N13.39 Family his tory of Congenital heart disease 197305394 Z82.79 - FOB with hole in heart, unsure of details, never needed surgery- will need echo ~24 weeks Placenta circumvallata 4502641 O43.119 Gestation period, 20 weeks 89887091 Z3A.20 [id number] RUBEN COTA MD [place] [address],[place] [address] 12/07/2023 14:42:06 12/07/2023 15:22:14 Family history of Congenital heart disease 110469072 Z82.79 - FOB with hole in heart, unsure of details, never needed surgery- will need echo ~24 weeks Placenta circumvallata 3293398 O43.119 Dilatation of renal pelvis 541414271 N13.39 Gestation period, 24 weeks 092521378 Z3A.24 [id number] Dawson Thayer MD [place] [address],[place] [address] 12/07/2023 15:05:11 12/07/2023 15:48:57 Placenta circumvallata 9508226 O43.112 O35.8XX0 Z3A.24 [id number] Dawson Thayer MD [place] [address],[place] [address] 01/04/2024 14:59:17 01/04/2024 15:26:20 Placenta circumvallata 3055224 O43.112 O35.8XX0 Z3A.28 [id number] Anat Jean, [facility] [address],[place] [address] 01/04/2024 14:59:37 01/04/2024 16:36:39 Routine care 799360241 Z34.93 [id number] Dawson Thayer MD [place] [address],[place] [address] 01/16/2024 16:56:34 01/16/2024 17:33:23 Routine care 906134039 Z34.83 [id number] Dawson Thayer MD [place] [address],[place] [address] 02/03/2024 12:31:25 02/03/2024 13:42:19 Placenta circumvallata 8258143 O43.112 O35.8XX0 Z3A.32 [id number] [facility] [address],[place] [address] 02/03/2024 12:53:56 02/03/2024 13:41:15 Routine care 100280897 Z34.93 [id number] RUBEN COTA MD [place] [address],[place] [address] 02/17/2024 16:06:21 02/17/2024 16:23:18 Placenta circumvallata 9175897 O43.112 O35.8XX0 Z3A.32 Gestation period, 34 weeks 99243100 Z3A.34 [id number] [facility] [address],[place] [address] 03/02/2024 14:22:26 03/02/2024 14:43:30 Urinary symptoms 823306409 R39.9 Gestation period, 36 weeks 51115917 Z3A.36 continue vitamin screening 2437 64979 Z36.85 [id number] RUBEN COTA MD [place] [address],[place] [address] 03/09/2024 14:51:49 03/09/2024 15:47:45 Dilatation of renal pelvis 925268255 N13.39 Family his tory of Congenital heart disease 176184685 Z82.79 - FOB with hole in heart, unsure of details, never needed surgery- echo wnl Placenta circumvallata 5525254 O43.112 Gestation period, 37 weeks 84063979 Z3A.37 - continue vitamins [id number] RUBEN COTA MD [place] [address] [address] 03/16/2024 14:27:53 03/16/2024 16:07:01 Placenta circumvallata 9378533 O43.112 Family his tory of Congenital heart disease 892299672 Z82.79 - FOB with hole in heart, unsure of details, never needed surgery- echo wnl Gestation period, 38 weeks 40799393 Z3A.38 - continue PNV [id number] Anat Jean CNM [place] [address] [address] 03/23/2024 14:30:04 03/23/2024 15:07:53 Gestation period, 39 weeks 56843056 Z3A.39 continue vitamin Health Concerns Section Related Observation LastModified by Organization Detai ls LastModified Time None Recorded Concern Status LastModified by Organization Details LastModified Time None Recorded Advance Directives Directive None Recorded Payers Insurance Date Sequence Insurance Name Policy Number Policy Davis Covered Member ID Davis Member ID Guarantor Name 03/28/2024 1 [facility] ON OR AFTER 02/12/21 (MEDICAID REPLACEMENT - HMO) Ana Lilia Shields [id number] Ana Lilia Shields Notes Date Note Type Note Provider Name and Address Organization Details Recorded Time 02/17/2024 text/html Generic HPI TemplateReported by Patient RUBEN COTA MD [address], [place], [address], [facility] 02/17/2024 16:20:12 03/02/2024 text/html Generic HPI TemplateReported by Patient Anat Jean CNM [address], [place], [address], [facility] 03/02/2024 14:46:19 03/09/2024 text/html Generic HPI TemplateReported by Patient RUBEN COTA MD [address], [place], [address], [facility] 03/09/2024 15:42:42 03/16/2024 text/html Generic HPI TemplateReported by Patient RUBEN COTA MD [address], [place], [address], [facility] 03/16/2024 15:14:55 03/23/2024 text/html Generic HPI TemplateReported by Patient Anat Jean CNM [address], [place], [address], [facility] 03/23/2024 15:07:00 OBGyn Episode Ob Episode Information Episode Created Date Number of Fetuses Patient Bloodtype Patient rh Status Prepregnancy Weight lbs Domestic Partner Domestic Partner Phone Father Name Engineering Specialist Status 08/24/19 24 1 CLOSED Fetus Data First Name Last Name Admitted to NICU Weight (g) Sex Living Outcome Pediatric Complications Fetus ID Race Codes Race Delivery Type 3486.76 1704 F Full Term [id number] Vaginal Delivery Noman Calculation Initial Noman Date Initial Exam Date Initial Exam Provider Initial Ultrasound Date Last Menstrual Period Date Ultra Sound Weeks Gestation 0 Eighteen To Twenty Week Noman Update Ultra Sound Date Fundal Height At Umbil Quickening Date Ultra Sound Latest Weeks Gestation Final Noman Confirmed By Final Noman Confirmed Date Final Noman Date Ultra Sound Latest Days Gestation 0 0 Menstrual History Last Menstrual Date Menses Monthly On Bcp Conception Prior Menses Frequency Hcg Plus Date Menarche Onset Age Delivery Information Delivery Date Delivery Type Labor Anesthesia Weeks Gestation Incision Type Labor Labor Length Hrs Delivered By Post Complications Tubal Sterilization Discharge Date Comments 1 37 Discharge Information Feeding Method Contraceptive Method Maternal HG B and HCT Levels Ob Episode Information Episode Created Date Number of Fetuses Patient Bloodtype Patient rh Status Prepregnancy Weight lbs Domestic Partner Domestic Partner Phone Father Name Engineering Specialist Status 09/14/19 24 1 B Negative 195.6 CLOSED Fetus Data First Name Last Name Admitted to NICU Weight (g) Sex Living Outcome Pediatric Complications Fetus ID Race Codes Race Delivery Type 4029.89 [id number] M true Full Term [id number] Vaginal Delivery Problems Problem Notes echo order sent WASH 11/10/23 Problem Name Start Date End Date Resolution Snomed Code Not e History of anemia 346423098 20 0mg IV Iron once weekly x3 weeks Family history of Congenital heart disease [id number] FOB with septal defect, needs echo at 24 weeks Dilatation of renal pelvis [id number] 4mm bilaterally at 20 weeks, resolved at 32 wks Placenta circumvallata [id number] serial growths Urinary tract infection in 09/19/2023 [id number] Ecoli - tx Macrobid bid x5 Prophylactic immunotherapy [id number] rhogam at 28wk s - received 01/13/24 Noman Calculation Initial Onman Date Initial Exam Date Initial Exam Provider Initial Ultrasound Date Last Menstrual Period Date Ultra Sound Weeks Gestation 03/26/2024 09/14/2023 08/24/2023 06/20/2023 9 Eighteen To Twenty Week Noman Update Ultra Sound Date Fundal Height At Umbil Quickening Date Ultra Sound Latest Weeks Gestation Final Noman Confirmed By Final Noman Confirmed Date Final Noman Date Ultra Sound Latest Days Gestation 0 [email or web address] 09/14/2023 03/26/20 24 0 Pre- Flowsheet Flowsheet Date 09/14/2023 Vanegas Score Blood Edema Fundus Height Fundus Units Glucose Ketones Leukocytes Nitrite Labor Signs Protein Cervic Dilation Cervic Effacement Cervic Station 12 Type Weight in lbs Pre/Post Dialysis Refused Weight 195.332970696226 BP Diastolic BP Location Tested BP Systolic BP Type 78 113 Fetus Heart Rate Present Fetus Movement Comments Patient presents to [facility] care. thus far uncomplicated. Nausea improving, some constipation. Mild cramping now resolved. OB hx significant for x2, complicated by anemia requiring Fe infusions. Will check CBC and anemia panel today. NT/NB wnl today, desires NIPT. RTC 4 weeks. Flowsheet Date 10/12/2023 Vanegas Score Blood Edema Fundus Height Fundus Units Glucose Ketones Leukocytes Nitrite Labor Signs Protein Cervic Dilation Cervic Effacement Cervic Station Type Weight in lbs Pre/Post Dialysis Refused Weight 194.489550875654 BP Diastolic BP Location Tested BP Systolic BP Type 78 112 Fetus Heart Rate Present A 140 Fetus Movement A Yes Comments Still having some nausea, im proved with meds. No cramping or bleeding. Started feeling movement! New OB labs wnl, no evidence of anemia. LR NIPT. Completed abx for asymptomatic bacteruria. RTC 4 weeks for anatomy US. Flowsheet Date 11/09/2023 Vanegas Score Blood Edema Fundus Height Fundus Units Glucose Ketones Leukocytes Nitrite Labor Signs Protein Cervic Dilation Cervic Effacement Cervic Station Type Weight in lbs Pre/Post Dialysis Refused BP Diastolic BP Location Tested BP Systolic BP Type Fetus Heart Rate Present Fetus Movement Comments Flowsheet Date 11/09/2023 Vanegas Score Blood Edema Fundus Height Fundus Units Glucose Ketones Leukocytes Nitrite Labor Signs Protein Cervic Dilation Cervic Effacement Cervic Station Type Weight in lbs Pre/Post Dialysis Refused Weight 195.328479093933 BP Diastolic BP Location Tested BP Systolic BP Type 78 112 Fetus Heart Rate Present A 165 Fetus Movement A Yes Comments Good movement. No cram ping or bleeding. Nausea improved. Anatomy complete today, FEW 54%, circumvallate placenta, minimal pyelectasis (4mm bilaterally). Plan for serial growth US. Breech presentation. Will send order for echo due to FOB with septal heart defect. RTC 4 weeks Flowsheet Date 12/07/2023 Vanegas Score Blood Edema Fundus Height Fundus Units Glucose Ketones Leukocytes Nitrite Labor Signs Protein Cervic Dilation Cervic Effacement Cervic Station Type Weight in lbs Pre/Post Dialysis Refused Weight 199.905593058657 BP Diastolic BP Location Tested BP Systolic BP Type 80 126 Fetus Heart Rate Present Fetus Movement A Yes Comments Having some trouble breathin g due to baby position. Good movement. No cramping or bleeding. echo scheduled for Tuesday. Growth US to follow for circumvallate placenta. Discussed GCT, labs, and rhogam for next visit. RTC 4 weeks. Flowsheet Date 12/07/2023 Vanegas Score Blood Edema Fundus Height Fundus Units Glucose Ketones Leukocytes Nitrite Labor Signs Protein Cervic Dilation Cervic Effacement Cervic Station Type Weight in lbs Pre/Post Dialysis Refused BP Diastolic BP Location Tested BP Systolic BP Type Fetus Heart Rate Present Fetus Movement Comments Flowsheet Date 01/04/2024 Vanegas Score Blood Edema Fundus Height Fundus Units Glucose Ketones Leukocytes Nitrite Labor Signs Protein Cervic Dilation Cervic Effacement Cervic Station Type Weight in lbs Pre/Post Dialysis Refused BP Diastolic BP Location Tested BP Systolic BP Type Fetus Heart Rate Present Fetus Movement Comments Flowsheet Date 01/04/2024 Vanegas Score Blood Edema Fundus Height Fundus Units Glucose Ketones Leukocytes Nitrite Labor Signs Protein Cervic Dilation Cervic Effacement Cervic Station neg none none neg Type Weight in lbs Pre/Post Dialysis Refused Weight 202.083716047606 BP Diastolic BP Location Tested BP Systolic BP Type 72 104 Fetus Heart Rate Present Fetus Movement A Yes Comments Patient states that having s ome lightheaded, nausea and vomiting. plan labs this week, order given, increase hydration, protein filled snacks, decrease activity, efw 54%, mild gorge pyelactasis, education and precautions f/u 2 weeksm Flowsheet Date 01/16/2024 Vanegas Score Blood Edema Fundus Height Fundus Units Glucose Ketones Leukocytes Nitrite Labor Signs Protein Cervic Dilation Cervic Effacement Cervic Station neg none none trace Type Weight in lbs Pre/Post Dialysis Refused Weight 202.320727062485 BP Diastolic BP Location Tested BP Systolic BP Type 81 L arm 119 sitting Fetus Heart Rate Present A 154 Fetus Movement A Yes Comments normal echo, patient h as no complaints, good movement, no contractions, loss of fluid, vaginal bleeding. Flowsheet Date 02/03/2024 Vanegas Score Blood Edema Fundus Height Fundus Units Glucose Ketones Leukocytes Nitrite Labor Signs Protein Cervic Dilation Cervic Effacement Cervic Station Type Weight in lbs Pre/Post Dialysis Refused BP Diastolic BP Location Tested BP Systolic BP Type Fetus Heart Rate Present Fetus Movement Comments Flowsheet Date 02/03/2024 Vanegas Score Blood Edema Fundus Height Fundus Units Glucose Ketones Leukocytes Nitrite Labor Signs Protein Cervic Dilation Cervic Effacement Cervic Station none Type Weight in lbs Pre/Post Dialysis Refused Weight 200.923023646979 BP Diastolic BP Location Tested BP Systolic BP Type 76 109 Fetus Heart Rate Present Fetus Movement A Yes Comments Patient states that having c ramping and BH contractions. reviewed precautions, baby is vertex! bilateral renal pelvis wnl, efw 45%, +FM, f/u 2 weeks, call for preadmit Flowsheet Date 02/17/2024 Vanegas Score Blood Edema Fundus Height Fundus Units Glucose Ketones Leukocytes Nitrite Labor Signs Protein Cervic Dilation Cervic Effacement Cervic Station Type Weight in lbs Pre/Post Dialysis Refused Weight 201.507863056636 BP Diastolic BP Location Tested BP Systolic BP Type 74 107 Fetus Heart Rate Present A 130 Fetus Movement A Yes Comments Doing well, good movem ent. No cramping or bleeding. Needs to schedule preadmission. Discussed GBS for next visit. RTC 2 weeks. Flowsheet Date 03/02/2024 Vanegas Score Blood Edema Fundus Height Fundus Units Glucose Ketones Leukocytes Nitrite Labor Signs Protein Cervic Dilation Cervic Effacement Cervic Station 37 Type Weight in lbs Pre/Post Dialysis Refused Weight 204.613001434318 BP Diastolic BP Location Tested BP Systolic BP Type 78 115 Fetus Heart Rate Present A 136 Present Fetus Movement Comments Patient is having some pain with urination and contractions. GBS collected, suspect UTI urine for culture keflex to pharmacy, declines cervical exam, education and precautions +FM f/u one week Flowsheet Date 03/09/2024 Vanegas Score Blood Edema Fundus Height Fundus Units Glucose Ketones Leukocytes Nitrite Labor Signs Protein Cervic Dilation Cervic Effacement Cervic Station Type Weight in lbs Pre/Post Dialysis Refused Weight 204.995559276194 BP Diastolic BP Location Tested BP Systolic BP Type 75 107 Fetus Heart Rate Present A 145 Fetus Movement A Yes Comments Feeling better, good m ovement. Some BH contractions, no bleeding or LOF. UTI symptoms resolved. GBS negative. Discussed labor precautions. RTC 1 week. Flowsheet Date 03/16/2024 Vanegas Score Blood Edema Fundus Height Fundus Units Glucose Ketones Leukocytes Nitrite Labor Signs Protein Cervic Dilation Cervic Effacement Cervic Station Type Weight in lbs Pre/Post Dialysis Refused BP Diastolic BP Location Tested BP Systolic BP Type Fetus Heart Rate Present A 155 Fetus Movement A Yes Comments Intermittent contractions an d pelvic pressure. Increased nausea. Good movement. No VB or LOF. , has pump. Preadmission done. RTC 1 week. Flowsheet Date 03/23/2024 Vanegas Score Blood Edema Fundus Height Fundus Units Glucose Ketones Leukocytes Nitrite Labor Signs Protein Cervic Dilation Cervic Effacement Cervic Station 39 cm 1cm 60% -2 Type Weight in lbs Pre/Post Dialysis Refused Weight 203.161621498843 BP Diastolic BP Location Tested BP Systolic BP Type 84 125 Fetus Heart Rate Present Fetus Movement Comments membrane sweep done, prefers no IOL, will return early next week for membrane sweep , education and precautions Menstrual History Last Menstrual Date Menses Monthly On Bcp Conception Prior Menses Frequency Hcg Plus Date Menarche Onset Age 1106/20/2023 Genetic Screening And Infection History Question Response Note Mental Retardation/Autism false Patient's Age Will Be 35 Years Or Older At Estim ated Date of Delivery false Thalassemia (St Helenian, Lithuanian, Mediterranean, Or Background): MCV < 80 false Neural Tube Defect (Meningomyelocele, Spina Bifi da, Or Anencephaly) false Congenital Heart Defect false Down Syndrome false Luis-Sachs (eg, Quaker, Cajun, Telugu-Merritt) f alse Ivy Disease false Sickle Cell Disease Or Trait () false Hemophilia Or Other Blood Disorders false Muscular Dystrophy false Cystic Fibrosis false Orland's Chorea false Intellectual Disability/Autism false If Yes, Was Person Tested For Fragile X? false Other Inherited Genetic Or Chromosomal Disorder false Maternal Metabolic Disorder (eg, Type 1 Diabetes , PKU) false Patient Or Baby's Father Had A Child With Defects Not Listed Above false Recurrent Loss, Or A Stillbirth false Medications (including Suppl ements, Vitamins, Herbs, OTC Drugs), Illicit/Recreational Drugs, Alcohol false If Yes, Agent(s) And Strength/Dosage false Any Other Genetic History false Live With Someone With TB Or Exposed To TB false Patient Or Partner Has History Of Genital Herpes false Rash Or Viral Illness Since Last Menstrual Perio d false History Of STD, Gonorrhea, Chlamydia, HPV, Syphi lis false Other Infection History false History of HIV false History of Hepatitis false Prior GBS-infected child false Hemoglobinopathy Or Carrier false Other Structural Defect false Recent Travel History Outside of Country false Delivery Information Delivery Date Delivery Type Labor Anesthesia Weeks Gestation Incision Type Labor Labor Length Hrs Delivered By Post Complications Tubal Sterilization Discharge Date Comments 4 Induce d None 40 false Anat Jean CNM Dilatatio n of renal pelvis,Fa ra history of Congenita l heart disease,H istory of anemia,Pl acenta circumval shyam,Prop hylactic immunothe rapy,Urin trenton tract infection in Discharge Information Feeding Method Contraceptive Method Maternal HG B and HCT Levels Ob Episode Information Episode Created Date Number of Fetuses Patient Bloodtype Patient rh Status Prepregnancy Weight lbs Domestic Partner Domestic Partner Phone Father Name Engineering Specialist Status 08/24/19 24 1 CLOSED Fetus Data First Name Last Name Admitted to NICU Weight (g) Sex Living Outcome Pediatric Complications Fetus ID Race Codes Race Delivery Type 3713.55 [id number] F Full Term [id number] Vaginal Delivery Noman Calculation Initial Noman Date Initial Exam Date Initial Exam Provider Initial Ultrasound Date Last Menstrual Period Date Ultra Sound Weeks Gestation 0 Eighteen To Twenty Week Noman Update Ultra Sound Date Fundal Height At Umbil Quickening Date Ultra Sound Latest Weeks Gestation Final Noman Confirmed By Final Noman Confirmed Date Final Noman Date Ultra Sound Latest Days Gestation 0 0 Menstrual History Last Menstrual Date Menses Monthly On Bcp Conception Prior Menses Frequency Hcg Plus Date Menarche Onset Age Delivery Information Delivery Date Delivery Type Labor Anesthesia Weeks Gestation Incision Type Labor Labor Length Hrs Delivered By Post Complications Tubal Sterilization Discharge Date Comments 9 39 Discharge Information Feeding Method Contraceptive Method Maternal HG B and HCT Levels
--- OUTSIDE RECORDS SUMMARY | 2025-08-05 05:35 | XMS_ITS | Clinical Summary ---
Author Organization [facility] [employer] Address [address] [place] [address] Care Team Providers Care Deputy Juvenile Officer Name Role Phone Unavailable Primary Care Provider Unavailabl e Source Comments [facility],non-owned Affiliates and Associated Physician Practices is amultiple site organization consisting of ambulatory clinics and hospital sitesin [place], [place], [place] and [place]. This disclosure is being madepursuant to the Care Everywhere program and may not contain all information available regarding this patient. 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 Gender Identity Not on file Sexual [...] - 3-dose series) 2016 CHLAMYDIA/GONORRHEA SCREENING 2017 HEPATITIS C SCREENING 05/04/2019 DTAP/TDAP/TD VACCINES (1 - Tdap) 2020 HEPATITIS B VACCINE (1 of 3 - 19+ 3-dose series) 2020 PAP SMEAR 2022 DEPRESSION SCREENING 08/15/2024 COVID-19 VACCINE (1 - 2024-2 6 season) 2025 INFLUENZA VACCINE (#1) 2025 ZOSTER VACCINE (1 of 2) 2051 HIB VACCINE Aged Out No longer eligi ble based on patient's age to complete this topic MENINGOCOCCAL (Group B) VACC INE SHARED DECISION-MAKING Aged Out No longer eligibl e based on patient's age to complete this topic MENINGOCOCCAL GROUPS A/C/Y/W VACCINE Aged Out No longer eligible b ased on patient's age to complete this topic PNEUMOCOCCAL VACCINE Aged Out No long er eligible based on patient's age to complete this topic Insurance [facility] [place] [address] [place] [address]
--- OUTSIDE RECORDS SUMMARY | 2025-08-05 05:35 | XMS_ITS | Clinical Summary ---
Author Organization [facility] Address [address] [place] [address] Care Team Providers Care Tub Chucker Name Role Phone Alex Perez MD Primary Care Provide r Laura Parker Unavailable Allergies Active Allergy Reactions Criticality Noted Date Comments Nickel Swelling Medium 07/29/2021 Medications vit 96-yajr-oeaje-d mclain 27mg iron- 800 mcg-250 mg capsule [...] (09/25/2021): Added automatically from request for surgery [id number] Tear of lateral meniscus of right knee 2 Overview (09/25/2021): Added automatically from request for surgery [id number] Esotropia, accommodative 09/24/2014 Hyperopic astigmatism 09/24/2014 Surgical [...] on file 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 Gender Identity Not on file Sexual Orientation [...] Vaccines (1 - 3-dose series) 2016 Hepatitis B Screening 2019 Regular Well Visit/Exam 18-64 2019 Influenza Vaccine (#1) 2025 Pneumococcal vaccine <65 Aged Out No longer eligible based on patient's age to complete this topic Medical Devices Implanted Type Area Wardsperson Device Identifier Shelf Expiration Date Model / Serial / Lot [employer] Tightrope 14mm Attachable Round Concave Button Fixation [id number] - [id number] Implanted:Qty: 1 on 12/10/2021 by Denis Dunham MD at [facility] Right: Knee [employer] 06/14/2026 AR-1588TB-[id number] / / [id number] [employer] Swivelock C 4.75mm 19.1mm Closed Eyelet Vent [place] Suture [id number] - [id number] Implanted:Qty: 1 on 12/10/2021 by Denis Dunham MD at [facility] Right: Knee [employer] 08/14/2025 [id number] / / [id number] Lif[employer]et Flexigraft Graftlink 7.5-10.5mm 60-80mm Frozen Allograft [facility] - [id number] - [id number] Implanted:Qty: 1 on 12/10/2021 by Denis Dunham MD at [facility] Right: Knee [employer] 06/03/2024 [employer] / [id number] / Insurance [facility] Care Teams Tub Chucker Relationship Specialty Start Date End Date Alex Perez MD [address] [place] [address] PCP - General Family Medicine 07/28/21 Laura Parker PA [address] [place] [address] Physician Mechanical Press Operator Orthopedic Surgery 12/10/21
[2025-08-05 06:26] LABS: Strep Group A RT-PCR DETECTED (Negative)
[2025-08-05 06:43] LABS: Influenza A QL RT-PCR Negative (Negative); Influenza B QL RT-PCR Negative (Negative); SARS-CoV-2 RNA PCR Negative (Negative)
--- NOTE | 2025-08-05 06:47 | ED.GENADULT ---
HPI - General Adult General Chief complaint: Upper Respiratory Infection Stated complaint: upper respiratory Time Seen by Provider: 08/05/25 05:37 History of Present Illness HPI narrative: 25-year-old healthy female reports she developed sore throat over the past 2 days that is gotten quite uncomfortable, she has muscle aches, thinks she is running a fever at times, is tired, but denies any overt chest pain, shortness of breath, wheezing, has a little bit of nausea but no emesis. Related Data Home Medications ?Medication ?Instructions ?Recorded ?Confirmed ?Last Taken ?Type vitamins no.144-folic 1 tablet PO DAILY 09/22/23 03/12/24 03/25/24 History acid 400 mcg chewable tablet () Allergies Allergy/AdvReac Type Severity Reaction Status Date / Time No Known Allergies Allergy Unknown Verified 08/05/25 05:37 Review of Systems Review of Systems: ROS is negative except as in HPI PMFSH Past Medical History Medical History Anemia Depression Vaginal delivery Surgical History Surgical History Hx of tonsillectomy History of appendectomy Family History Family History (Updated 03/02/24 @ 14:32 by Codie Dougherty RN) Sibling MCAD deficiency Grandparent Kidney malignancy Social History Social History Smoking status: Never smoker Substance use: never Lack of Transportation: No Lack of Food: Never True Current Housing: I Have Housing Concerned About Future Housing: No Difficulty Paying Gas/Electric Bills: No Difficulty Paying for Meds: No Currently Unemployed: No Education: High School Diploma/GED Difficulty w/ Childcare or Family Care: No Spiritual care concerns: No Exam Narrative: pleasant, well-appearing, no acute distress Const: General: cooperative, healthy appearing, comfortable, no acute distress, well developed, alert, awake and Physically active Orientation/consciousness: patient oriented x3 HENMT: Head: normal to inspection, normocephalic and atraumatic Ears: hearing grossly normal bilaterally and external ears normal Face/Nose/Sinus: Normal external nose present, Normal nares present, Normal nasal mucous membranes and turbinates present and normal facial exam Face and sinus: normal facial exam Mouth: Yes Normal oral and palatal mucosa present, Yes lip normal, Yes tongue normal, Yes oropharynx normal and Yes moist mucous membranes Teeth and gingiva: dentition normal Throat: posterior oropharynx abnormal (Hypopharynx is erythematous, there is some tonsillar enlargement, there are) and tonsils normal ( erythematous) Eyes: General: appearance normal, both eyes and all related structures Alignment and Position: alignment normal and position normal Periorbital: periorbital findings normal Eyelids: eyelids normal Conjunctivae: conjunctivae normal Sclera: sclerae normal Cornea: corneas normal Pupils: Equal, round and reactive pupils present EOM: EOMs intact bilaterally Neck: Neck: normal visual inspection, full ROM, lymphadenopathy noted and lymphadenopathy Chest: Chest palpation & inspection: normal inspection of the chest Resp: Effort & Inspection: normal respiratory effort, able to speak in complete sentences, no audible wheezes, no respiratory distress and no use of accessory muscles Auscultation: clear to auscultation bilaterally Cardio: Jugular venous distension: no JVD Rate: regular rate Rhythm: regular rhythm GI: Inspection: normal to inspection GI Palp: No abdominal tenderness, No Tenderness to palpation present (GI), No Guarding due to palpation present (GI), No No hepatosplenomegaly present, No Palpable mass present and No Rebound tenderness present Skin: General skin exam: normal color, no rashes or lesions noted, elasticity normal and turgor normal Neuro: General: patient oriented x3, gait normal, tone normal and moves all extremities Cranial nerves: Yes CN's II-XII intact bilaterally, Yes Equal, round and reactive pupils present and Yes Bilaterally intact EOM present Speech: normal speech Motor exam (neuro): 5/5 motor strength present throughout and Normal motor muscle tone present throughout Sensory Exam: normal sensation Extrem: General: normal to inspection, normal exam except as noted and no pedal edema Psych: Appearance: grossly normal and well kempt Mental Status: mental status grossly normal Speech and movement: Normal speech and movement present Affect: normal affect Attitude: cooperative Thought process: Normal thought process present Course Course Emergency Course: Differential diagnosis includes but is not limited to strep, influenza, COVID, other viral illness Strep is positive COVID is negative Influenza is negative Will start on amoxicillin 875 b.i.d. for 10 days Saltwater gargles Tylenol as needed Ibuprofen as needed Increase fluids, Plenty of sleep Good nutrition Return to the emergency department if worsens Medical decision making complexity and risk was low Vital Signs Vital signs: Vital Signs Temperature 37.2 C 08/05/25 05:35 Pulse Rate 117 H 08/05/25 05:35 Respiratory Rate 16 08/05/25 05:35 Blood Pressure 112/79 08/05/25 05:35 Pulse Oximetry 98 08/05/25 05:35 Oxygen Delivery Room Air 08/05/25 05:35 Temperature 37.2 C 08/05/25 05:35 Pulse Rate 117 H 08/05/25 05:35 Respiratory Rate 16 08/05/25 05:35 Blood Pressure 112/79 08/05/25 05:35 Pulse Oximetry 98 08/05/25 05:35 Oxygen Delivery Room Air 08/05/25 05:35 MDM Differential Diagnosis Differential Diagnosis: Differential diagnosis in ED course Lab Data Labs: Lab Results 08/05/25 Range/Units 05:42 Influenza A (RT-PCR) Negative (Negative) Influenza B (RT-PCR) Negative (Negative) SARS-CoV-2 RNA (RT-PCR) Negative (Negative) Group A Strep (PCR) Detected A (Negative) Discharge Plan Discharge Clinical Impression: Strep pharyngitis Patient Disposition: Home Condition: Stable Instructions: Antibiotic Form, Strep Throat (ED) Additional Instructions: Increase fluids, Tylenol 650 every 4-6 hours as needed for discomfort Ibuprofen 600 mg 3 times a day as needed for discomfort Amoxicillin as prescribed Saltwater gargles as needed Return to the emergency department if worsens Follow-up with your doctor in 1 week or as needed Patient Language: Kiswahili Prescriptions: New amoxicillin 875 mg tablet 875 mg PO Q12H Qty: 20 0RF ondansetron 4 mg tablet,disintegrating 4 mg PO Q6H PRN (Reason: nausea and vomiting) Qty: 10 0RF No Action 400 mcg Tablet,Chewable 1 tablet PO DAILY docusate sodium 100 mg Capsule 100 mg PO BID PRN (Reason: Constipation) Qty: 60 0RF ibuprofen 600 mg Tablet 600 mg PO Q6H PRN (Reason: Cramping) Qty: 30 0RF Follow-up/Referrals: Alex Perez MD [Primary Care Provider, Internal Medicine] Time of Disposition: 06:46
[2025-08-05 06:54] VITALS: BP 112/79; PULSE 103; RESP 16; TEMP 36.8; O2SAT 99
== END 2025-08-05 06:56 | disposition home or self-care (01) ==
PROVIDERS: Emergency Provider Emergency Medicine; PCP Family Medicine
DX: J02.0 Streptococcal pharyngitis (principal); Z20.822 Contact with and (suspected) exposure to COVID-19
CPT/HCPCS: 87636; 87651; 99283

== ENCOUNTER 2025-08-11 20:31 | Emergency (ER) | payer OTHER, SELFPAY ==
[2025-08-11 20:31] VITALS: BP 127/82; PULSE 116; RESP 16; TEMP 36.7; O2SAT 100
--- NOTE | 2025-08-11 20:43 | ED.URI ---
HPI - URI/Sore Throat General Chief Complaint: Upper Respiratory Infection Stated Complaint: throat problems Time Seen by Provider: 08/11/25 20:43 Source: patient Mode of arrival: ambulatory Limitations: no limitations History of Present Illness HPI Narrative: Patient is a 25-year-old female with a sore throat and strep last week and was given amoxicillin but only took 5 days of the course. She had side effects of GI upset and stopped the medication. She is here with not feeling good over the past few days as well as some neck pain. MD elicited complaint: sore throat (Minimal) and nasal congestion Pertinent past history: other (None) Onset (ago): week(s) (2) Consistency: constant Severity: moderate Pain scale (0-10): 3 Description of mucous: clear Able to tolerate fluids by mouth: Yes Exacerbating factors: nothing Relieving factors: nothing Context: other (Recent strep positive and only took 5 day of course due to GI side effects) Associated symptoms: nasal congestion, sore throat (Minimal to none) and other (Neck pain but not stiff neck) Treatments prior to arrival: none Related Data Home Medications ?Medication ?Instructions ?Recorded ?Confirmed ?Last Taken ?Type vitamins no.144-folic 1 tablet PO DAILY 09/22/23 03/12/24 03/25/24 History acid 400 mcg chewable tablet () Allergies Allergy/AdvReac Type Severity Reaction Status Date / Time No Known Allergies Allergy Unknown Verified 08/11/25 21:44 Review of Systems Review of Systems: All systems reviewed & are unremarkable except as noted in HPI and below Constitutional: Constitutional: Reports no additional constitutional complaints Eyes: Eyes: Reports no additional eye complaints ENT: Reports system reviewed and no additional complaints, except as documented Cardiovascular: Cardiovascular: Reports no additional cardiovascular complaints Respiratory: Respiratory: Reports no additional respiratory complaints Gastrointestinal: Gastrointestinal: Reports no additional gastrointestinal complaints Genitourinary: Genitourinary: Reports no additional female genitourinary complaints Musculoskeletal: Musculoskeletal: Reports no additional musculoskeletal complaints Integumentary/Breasts: Skin/Breast: Reports system reviewed and no additional complaints, except as docu Neurologic: Reports system reviewed and no additional complaints, except as documented Psychiatric: Psychiatric: Reports no additional psychiatric complaints Endocrine: Endocrine: Reports no additional endocrine complaints Hematologic/Lymphatic: Hematologic/Lymphatic: Reports no additional hematologic/lymphatic complaints Allergic/Immunologic: Allergic/Immunologic: Reports no additional allergic/immunologic complaints PMFSH Past Medical History Medical History Anemia Vaginal delivery Depression Surgical History Surgical History Hx of tonsillectomy History of appendectomy Family History Family History Sibling MCAD deficiency Grandparent Kidney malignancy Social History Social History Smoking status: Never smoker Substance use: never Lack of Transportation: No Lack of Food: Never True Current Housing: I Have Housing Concerned About Future Housing: No Difficulty Paying Gas/Electric Bills: No Difficulty Paying for Meds: No Currently Unemployed: No Education: High School Diploma/GED Difficulty w/ Childcare or Family Care: No Spiritual care concerns: No Exam Const: General: ill appearing Nutritional Appearance: well nourished Orientation/consciousness: patient oriented x3 Limitations: no limitations HENMT: Head: normal to inspection Ears: external ears normal Face/Nose/Sinus: Normal external nose present Eyes: Conjunctivae: conjunctivae normal Pupils: Equal, round and reactive pupils present EOM: EOMs intact bilaterally Neck: Neck: normal visual inspection Chest: Chest palpation & inspection: normal inspection of the chest Resp: Effort & Inspection: normal respiratory effort and not labored Auscultation: clear to auscultation bilaterally and no crackles Cardio: Rate: regular rate Rhythm: regular rhythm Heart sounds: no murmurs GI: Inspection: non-distended GI Palp: Yes Soft to palpation and No Tenderness to palpation present (GI) Auscultation: normal bowel sounds : General: Yes bladder normal to palpation Back/Spine/Pelvis: Back: no CVA tenderness Skin: General skin exam: normal color Rashes: no rashes Wounds: no wounds Neuro: General: patient oriented x3, moves all extremities and no meningeal signs Extrem: General: normal to inspection, no clubbing, cyanosis or edema and no pedal edema Psych: Mental Status: mental status grossly normal Affect: normal affect Attitude: cooperative Course Vital Signs Vital signs: Vital Signs Temperature 36.7 C 08/11/25 20:31 Pulse Rate 116 H 08/11/25 20:31 Respiratory Rate 16 08/11/25 20:31 Blood Pressure 127/82 08/11/25 20:31 Pulse Oximetry 100 08/11/25 20:31 Oxygen Delivery Room Air 08/11/25 20:31 Temperature 36.7 C 08/11/25 20:31 Pulse Rate 116 H 08/11/25 20:31 Respiratory Rate 16 08/11/25 20:31 Blood Pressure 127/82 08/11/25 20:31 Pulse Oximetry 100 08/11/25 20:31 Oxygen Delivery Room Air 08/11/25 20:31 [facility] Narrative Medical decision making narrative: Patient is a 25-year-old female with strep positive 2 weeks ago and only took half the course of antibiotics and now having neck pain and congestion. Repeat strep and COVID panel. Differential Diagnosis Differential Diagnosis: Strep pharyngitis, pharyngitis, tonsillitis Lab Data [facility] Lab Attestation statement: I personally reviewed the patient's lab results. Labs: Lab Results 08/11/25 08/11/25 08/11/25 Range/Units 20:37 20:41 21:04 Urine Color Light yellow (Yellow) Urine Appearance Clear (Clear) Urine pH 6.0 (5.0-8.0) Ur Specific [place] 1.010 (1.010-1.020) Urine Protein Negative (Negative) Urine Glucose (UA) Negative (Negative) Urine Ketones Negative (Negative) Ur Blood (Man) Negative (Negative) Urine Nitrate Negative (Negative) Urine Bilirubin Negative (Negative) Urine Urobilinogen 0.2 (0.2-1.0) mg/dL Leukocyte Esterase Rfl 2+ H (Negative) AJ/UL Urine WBC 21-30 H (0-3) /hpf Ur Squamous Epith Cells Many H (Few) /hpf Urine Bacteria 1+ H (None) /hpf Urine Mucus Moderate H /lpf Urine Test Influenza A (RT-PCR) Negative (Negative) Influenza B (RT-PCR) Negative (Negative) RSV (RT-PCR) Negative (Negative) SARS-CoV-2 RNA (RT-PCR) Negative (Negative) Group A Strep (PCR) Detected A (Negative) 08/11/25 Range/Units 21:05 Urine Color (Yellow) Urine Appearance (Clear) Urine pH (5.0-8.0) Ur Specific [place] (1.010-1.020) Urine Protein (Negative) Urine Glucose (UA) (Negative) Urine Ketones (Negative) Ur Blood (Man) (Negative) Urine Nitrate (Negative) Urine Bilirubin (Negative) Urine Urobilinogen (0.2-1.0) mg/dL Leukocyte Esterase Rfl (Negative) AJ/UL Urine WBC (0-3) /hpf Ur Squamous Epith Cells (Few) /hpf Urine Bacteria (None) /hpf Urine Mucus /lpf Urine Test Negative Influenza A (RT-PCR) (Negative) Influenza B (RT-PCR) (Negative) RSV (RT-PCR) (Negative) SARS-CoV-2 RNA (RT-PCR) (Negative) Group A Strep (PCR) (Negative) Discharge Plan Discharge Clinical Impression: Acute infective pharyngitis due to Streptococcus species UTI (urinary tract infection) Qualifiers: Urinary tract infection type: acute cystitis Hematuria presence: without hematuria Qualified Code(s): N30.00 - Acute cystitis without hematuria Patient Disposition: Home Condition: Stable Instructions: Antibiotic Form, Urinary Tract Infection in Women (DC), Strep Throat (ED) Additional Instructions: Please remember to take all of the prescription of antibiotics. Patient Language: [place] Prescriptions: New cephalexin 500 mg capsule 500 mg PO BID 7 Days Qty: 14 0RF No Action amoxicillin 875 mg tablet 875 mg PO Q12H Qty: 20 0RF ondansetron 4 mg tablet,disintegrating 4 mg PO Q6H PRN (Reason: nausea and vomiting) Qty: 10 0RF 400 mcg Tablet,Chewable 1 tablet PO DAILY docusate sodium 100 mg Capsule 100 mg PO BID PRN (Reason: Constipation) Qty: 60 0RF ibuprofen 600 mg Tablet 600 mg PO Q6H PRN (Reason: Cramping) Qty: 30 0RF Follow-up/Referrals: Alex Perez MD [Primary Care Provider, Internal Medicine] Time of Disposition: 22:19
--- OUTSIDE RECORDS SUMMARY | 2025-08-11 21:03 | XMS_ITS | Clinical Summary ---
Author Organization [facility] Address [address] [place] [address] Care Team Providers Care Hand Spring Repairer Name Role Phone Alex Perez MD Primary Care Provide r Laura Parker Unavailable [phone] Allergies Active Allergy Reactions Criticality Noted Date Comments Nickel Swelling Medium 07/29/2021 Medications vit 22-olcq-[id number]-d mclain 27mg iron- 800 mcg-250 mg capsule [...] (09/25/2021): Added automatically from request for surgery [id number] Tear of lateral meniscus of right knee 2 Overview (09/25/2021): Added automatically from request for surgery [id number] Esotropia, accommodative 09/24/2014 Hyperopic astigmatism 09/24/2014 Surgical [...] on file 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 Gender Identity Not on file Sexual Orientation [...] this topic Medical Devices Implanted Type Area Concrete Plant Laborer Device Identifier Shelf Expiration Date Model / Serial / Lot [employer] Tightrope 14mm Attachable Round Concave Button Fixation [id number] - [id number] Implanted:Qty: 1 on 12/10/2021 by Denis Dunham MD at [facility] Right: Knee [employer] 06/14/2026 AR-[id number]-[id number] / / [id number] [employer] Swivelock C 4.75mm 19.1mm Closed Eyelet Vent [place] Suture [id number] - [id number] Implanted:Qty: 1 on 12/10/2021 by Denis Dunham MD at [facility] Right: Knee [employer] 08/14/2025 [id number] / / [id number] [employer]et Flexigraft Graftlink 7.5-10.5mm 60-80mm Frozen Allograft [facility] - [id number] - [id number] Implanted:Qty: 1 on 12/10/2021 by Denis Dunham MD at [facility] Right: Knee [employer] 06/03/2024 [facility] / [id number] / Insurance [facility] Care Teams Hand Spring Repairer Relationship Specialty Start Date End Date Alex Perez MD [address] [place] [address] PCP - General Family Medicine 07/28/21 Laura Parker PA [address] [place] [address] Physician Adjustment Supervisor Orthopedic Surgery 12/10/21
--- OUTSIDE RECORDS SUMMARY | 2025-08-11 21:03 | XMS_ITS | Clinical Summary ---
Author Organization [facility] Address [address] [place] [address] Care Team Providers Care Lace Stripper Name Role Phone Unavailable Primary Care Provider Unavailabl e Source Comments [facility],non-owned Affiliates and Associated Physician Practices is amultiple site organization consisting of ambulatory clinics and hospital sitesin [place], [place], [place] and [place]. This disclosure is being madepursuant to the Care Everywhere program and may not contain all information available regarding this patient. 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 [place] [address]
--- OUTSIDE RECORDS SUMMARY | 2025-08-11 21:03 | XMS_ITS | Clinical Summary ---
Author Organization [facility] Address [address] [place] [address] Care Team Providers Care Fire Hydrant Mechanic Name Role Phone Alex Perez MD Primary Care Provider [phone] Social History Tobacco Use Types Packs/Day Years [...] complete this topic Insurance [employer] Care Teams Fire Hydrant Mechanic Relationship Specialty Start Date End Date Alex Perez MD [address] [place] [address] PCP - General FAMILY PRACTICE 03/31/24
--- OUTSIDE RECORDS SUMMARY | 2025-08-11 21:03 | XMS_ITS | Data Portability ---
Author Organization [facility] Address [address] [place] [address] [place] [address] Care Team Providers Care Data Services Developer Name Role Phone LÓPEZ FAIRBANKS Primary Care Provider Assessment Encounter Date Assessment Date Assessment LastModified by Organization Details LastModified Time 03/02/2024 03/02/2024 Patient is _36__weeks . Discussed plan. [email or web address] Not available 03/02/2024 14:40:13 03/23/2024 03/23/2024 Patient is _39__weeks . Discussed plan. [email or web address] Not available 03/23/2024 15:03:57 Plan of Treatment Reminders Order Date Submit Date Provider Last Modified By Organization Details Last Modified Time Details Appointments None recorded. Lab culture, urine 2023 024 [facility] (Lab), [address], [place], [address], 4 17:05:50 urinalysis, dipstick 2023 024 [email or web address] [address] [place], [place], [address], 14:43:03 streptococc us group B, culture, unspecified specimen 2023 024 [facility] (Lab), [address], [place], [address], 17:05:50 Referral None recorded. Procedures None recorded. Surgeries None recorded. Imaging None recorded. Medication Orders cephalexin 500 mg capsule 2023 024 [facility] #[id number], [address] [place], [address], 15:20:54 Patient TargetsNo targets recorded. Patient InstructionsNo instructions recorded. Reason for Referral None Reported. Results Created Date Observation Date Name Description Value Unit Range Abnormal Flag Note LastModifiedBy Organization Detail LastModifiedTime 02/17/2002/17/2024 HEMAT OCRIT (HCT) HCT 31.8 % (based on docume nted legal sex) 34.0-4 5.0 low Not Available [facility] (Lab) [address] [facility], [place], [address], 02/18/2024 03:37:33 02/17/20 24 02/17/2024 HEMOG LOBIN (HGB) HGB 9.5 g/dL (based on docume nted legal sex) 11.6-1 5.4 low Not Available [facility] (Lab) [address] [facility], [place], [address], 02/18/2024 03:37:34 03/02/20 24 03/02/2024 CULTU RE: URINE result report SEE RESULT S BELOW Test: Cultu re: Urine Speci men Sourc e: Urine - Clean Catch Speci men Type: Urine Speci men Date: 2023 1605 Resul t Date: 2023 0558 Resul t Statu s: Final resul t Abnor mal: No Resul ting Lab: [facility] [address] [facility] [address] Tel: CULTU RE ----- ----- ----- --- Organ ism(s ) consi stent with uroge nital or skin margie . Repea t cultu re if sympt oms indic ate. Not Available [facility] (Lab) [address] [place], [address], 03/05/2024 17:05:50 03/02/20 24 03/02/2024 CULTU RE: [...] Resul ting Lab: [facility] [address] [facility] [address] [facility] [address] Tel: CULTU RE ----- ----- ----- --- No Group B strep isola ileana at 2 days (lesley ctive broth enhan cemen t) Not Available [facility] (Lab) [address] [facility], [place], [address], 03/05/2024 17:05:50 03/02/20 24 03/02/2024 urina lysis , dipst ick Leukocytes +3 Not Available Aliyah graham [address], [place], [address], 03/02/2024 14:39:58 03/02/20 24 03/02/2024 urina lysis , dipst ick Nitrite normal Not Available [place] [address], [place], [address], 03/02/2024 14:39:58 03/02/20 24 03/02/2024 urina lysis , dipst ick Urobilinogen normal Not Available Elli sanders [address], [place], [address], 03/02/2024 14:39:58 03/02/20 24 03/02/2024 urina lysis , dipst ick Protein trace Not Available [place] [address], [place], [address], 03/02/2024 14:39:58 03/02/20 24 03/02/2024 urina lysis , dipst ick pH 8 Not Available [place] [address], [place], [address], 03/02/2024 14:39:58 03/02/20 24 03/02/2024 urina lysis , dipst ick Blood trace Not Available [place] [address], [place], [address], 03/02/2024 14:39:58 03/02/20 24 03/02/2024 urina lysis , dipst ick Specific [place] 1.020 Not Available [facility] [address], [place], [address], 03/02/2024 14:39:58 03/02/20 24 03/02/2024 urina lysis , dipst ick Ketone +3 Not Available [place] [address], [place], [address], 03/02/2024 14:39:58 03/02/20 24 03/02/2024 urina lysis , dipst ick Bilirubin normal Not Available [facility] [address], [place], [address], 03/02/2024 14:39:58 03/02/20 24 03/02/2024 urina lysis , dipst ick Glucose normal Not Available [place] [address], [place], [address], 03/02/2024 14:39:58 03/02/20 24 03/02/2024 urina lysis , dipst ick Appearance normal Not Available Aliyah graham [address], [place], [address], 03/02/2024 14:39:58 03/02/20 24 03/02/2024 urina lysis , dipst ick Color normal Not Available [place] [address], [place], [address], 03/02/2024 14:39:58 02/03/20 24 02/03/2024 US, obste tric, follo w-up No observ ation record ed. GIRMA Cabrales [address], [place], [address], 02/07/2024 10:41:13 02/03/20 24 02/03/2024 US, obste tric, follo w-up No observ ation record ed. triston [place] [address], [place], [address], 02/03/2024 17:33:08 Result Notes None recorded. Problems Name Problem SNOMED Code Status Onset Date Resolution Date Notes Provider Name and Address Organization Details Recorded Time History of anemia 996201500 Completed 200mg IV Iron once weekly x3 weeks Anat Jean CNM [address], [place], [address], [facility] 4 14:45:17 Family history of Congenit al heart disease 655766690 Completed FOB with septal defect, needs echo at 24 weeks Anat Jean CNM [address], [place], [address], [facility] 4 14:45:17 Prophyla ctic immunoth erapy Completed rhogam at 28wks - received 01/13/24 Anat Jean CNM [address], [place], [address], [facility] 4 14:45:17 Dilatati on of renal pelvis Completed 4mm bilatera lly at 20 weeks, resolved at 32 wks Anat Jean CNM [address], [place], [address], [facility] 4 14:45:17 Placenta circumva llata 6826900 Completed serial growths Anat Jean CNM [address], [place], [address], [facility] 4 14:45:17 Family history of Congenit al heart disease 573510727 Active FOB with septal defect, needs echo at 24 weeks Anat Jean CNM [address], [place], [address], [facility] 4 14:45:17 Placenta circumva llata 5385578 Active serial growths Anat Jean CNM [address], [place], [address], [facility] 4 14:45:17 Dilatati on of renal pelvis Active 4mm bilatera lly at 20 weeks, resolved at 32 wks Anat Jean CNM [address], [place], [address], [facility] 4 14:45:17 Pregnanc y 80775308 Completed 202303/29/2024 Gabe chung, [facility] 4 14:55:48 Urinary tract infectio n in pregnanc y 787271278 Completed 2023 Ecoli- tx Macrobid bid x5 Anat Jean CNM [address], [place], [address], [facility] 4 14:45:17 Problem Notes None recorded. Procedures Surgical History Date Name Laterality Status Provider Name and Address Organization Details Recorded Time 2 operative procedure on knee completed Irma Gutierrez [facility] 08/24/2023 15:47:58 4 operative procedure on knee completed Irma Hernandezzach [facility] 08/24/2023 15:47:41 Imaging Results None recorded. [...] Address Organization Details Last Updated DateTime 02/17/2024 05841.392395 g Jordan ELLSWORTH [address], [place], [address], [facility] 02/17/2024 16:19:47 Date Recorded Body height Body mass index (BMI) Systolic And Diastolic Provider Name and Address Organization Details Last Updated DateTime 02/17/2024 162.56 cm 34.6 kg/m2 107/74 mm[Hg] [facility] 02/17/2024 16:10:46 Date Recorded Body height Body mass index (BMI) Body weight Systolic And Diastolic Provider Name and Address Organization Details Last Updated DateTime 03/02/2024 162.56 cm 35 kg/m2 36711.843 48 g 115/78 mm[Hg] Aleta Bradshaw [facility] 03/02/2024 14:31:26 Date Recorded Body height Body mass index (BMI) Body weight Systolic And Diastolic Provider Name and Address Organization Details Last Updated DateTime 03/09/2024 162.56 cm 35.1 kg/m2 22692.56 g 107/75 mm[Hg] [facility] 03/09/2024 15:20:46 Date Recorded Body height Provider Name an d Address Organization Details Last Updated DateTime 03/16/2024 162.56 cm [facility] 03/16/2024 14:32:23 Date Recorded Body height Body mass index (BMI) Body weight Systolic And Diastolic Provider Name and Address Organization Details Last Updated DateTime 03/23/2024 162.56 cm 34.8 kg/m2 40609.25 g 125/84 mm[Hg] [facility] 03/23/2024 14:39:42 Social History Question Answer Notes LastModified by Organizat ion Details LastModified Time Tobacco Smoking Status [facility]23 15:48:55 If You Are , What Was Your Level Of Alcohol Consumption Prior To ? None Information not available 08/24/2023 Are You Blind Or Do You Have Difficulty Seeing? No [email or web address] Information n ot available 01/16/2024 What Is [...] Do You Have Serious Difficulty Hearing? No [email or web address] Information not available 01/16/2024 Do You Use Your Seat Belt Or Car Seat Routinely? Yes [email or web address] Information not available 01/16/2024 Do You Have Smoke And Carbon Monoxide Detectors In Your Home? Yes [email or web address] Information not available 01/16/2024 Do You Use Sunscreen Routinely? Yes [email or web address] Information not available 01/16/2024 Has Tobacco Cessation Counseling Been Provided? No Information not available 08/24/2023 Do You Have Difficulty Walking Or Climbing Stairs? No [email or web address] Information not available 01/16/2024 Sex: Unknown Functional [...] independently without assistance or assistive devices? YESWOREST [email or web address] Information not available 01/16/2024 Are you able to care for yourself independently? Yes [email or web address] Information not available 01/16/2024 Do you have difficulty dressing, bathing, grooming, or toileting? No [email or web address] Information not available 01/16/2024 What is your [...] ICD10 Code Diagnosis IMO Codes Diagnosis Note [id number] Dawson Thayer MD [place] [address] [address] 08/24/2023 15:15:27 08/24/2023 15:43:12 screening 540326904 Z36.87 Z3A.09 [id number] RUBEN COTA MD [place] [address],[place] [address] 08/24/2023 15:29:45 08/26/2023 11:58:44 test positive 206048633 Z32.01 1. Exam today within normal limits.2. [...] visit.7. Genetic screening: desires. History of anemia 974655 002 Z86.2 - required Fe infusions during prior pregnancie s- will order Fe panel with new OB labs Family his tory of Congenital heart disease 994407328 Z82.79 - FOB with hole in heart, unsure of details, never needed surgery- will need echo ~24 weeks [id number] Dawson Thayer MD [place] [address],[place] [address] 09/14/2023 15:28:27 09/14/2023 16:02:45 screening 068323047 Z36.82 Z3A.12 [id number] RUBEN COTA MD [place] [address],[place] [address] 09/14/2023 15:28:46 09/14/2023 17:12:56 Anemia 066537697 D64.9 Routine an tenatal care 101762441 Z34.90 Family his tory of Congenital heart disease 010869731 Z82.79 - FOB with hole in heart, unsure of details, never needed surgery- will need echo ~24 weeks Gestation period, 12 weeks 40880848 Z3A.12 [id number] RUBEN COTA MD [place] [address],[place] [address] 10/12/2023 16:33:33 10/20/2023 15:05:02 Asymptomatic bacteriuria in 96859327 O23.12 History of anemia 067528 002 Z86.2 Gestation period, 17 weeks 23732287 Z3A.17 [id number] Dawson Thayer MD [place] [address],[place] [address] 11/09/2023 15:53:00 11/09/2023 17:25:04 screening for malformation 042221861 Z36.3 Z3A.20 [id number] RUBEN COTA MD [place] [address],[place] [address] 11/09/2023 15:53:18 11/10/2023 12:35:44 Dilatation of renal pelvis N13.39 Family his tory of Congenital heart disease 485809059 Z82.79 - FOB with hole in heart, unsure of details, never needed surgery- will need echo ~24 weeks Placenta circumvallata 9793796 O43.119 Gestation period, 20 weeks 01777758 Z3A.20 [id number] RUBEN COTA MD [place] [address],[place] [address] 12/07/2023 14:42:06 12/07/2023 15:22:14 Family history of Congenital heart disease 055010000 Z82.79 - FOB with hole in heart, unsure of details, never needed surgery- will need echo ~24 weeks Placenta circumvallata 4902048 O43.119 Dilatation of renal pelvis 356011965 N13.39 Gestation period, 24 weeks 684517238 Z3A.24 [id number] Dawson Thayer MD [place] [address],[place] [address] 12/07/2023 15:05:11 12/07/2023 15:48:57 Placenta circumvallata 8402432 O43.112 O35.8XX0 Z3A.24 [id number] Dawson Thayer MD [place] [address],[place] [address] 01/04/2024 14:59:17 01/04/2024 15:26:20 Placenta circumvallata 4826961 O43.112 O35.8XX0 Z3A.28 [id number] Anat Jean, [facility] [address],[place] [address] 01/04/2024 14:59:37 01/04/2024 16:36:39 Routine care 070829720 Z34.93 [id number] Dawson Thayer MD [place] [address],[place] [address] 01/16/2024 16:56:34 01/16/2024 17:33:23 Routine care 770329752 Z34.83 [id number] Dawson Thayer MD [place] [address],[place] [address] 02/03/2024 12:31:25 02/03/2024 13:42:19 Placenta circumvallata 8976932 O43.112 O35.8XX0 Z3A.32 [id number] [facility] [address],[place] [address] 02/03/2024 12:53:56 02/03/2024 13:41:15 Routine care 748642412 Z34.93 [id number] RUBEN COTA MD [place] [address],[place] [address] 02/17/2024 16:06:21 02/17/2024 16:23:18 Placenta circumvallata 1130749 O43.112 O35.8XX0 Z3A.32 Gestation period, 34 weeks 98128611 Z3A.34 [id number] [facility] [address],[place] [address] 03/02/2024 14:22:26 03/02/2024 14:43:30 Urinary symptoms 404911553 R39.9 Gestation period, 36 weeks 53249789 Z3A.36 continue vitamin screening 2437 58167 Z36.85 [id number] RUBEN COTA MD [place] [address],[place] [address] 03/09/2024 14:51:49 03/09/2024 15:47:45 Dilatation of renal pelvis 667090081 N13.39 Family his tory of Congenital heart disease 171751293 Z82.79 - FOB with hole in heart, unsure of details, never needed surgery- echo wnl Placenta circumvallata 9131202 O43.112 Gestation period, 37 weeks 74944551 Z3A.37 - continue vitamins [id number] RUBEN COTA MD [place] [address] [address] 03/16/2024 14:27:53 03/16/2024 16:07:01 Placenta circumvallata 3320006 O43.112 Family his tory of Congenital heart disease 382165716 Z82.79 - FOB with hole in heart, unsure of details, never needed surgery- echo wnl Gestation period, 38 weeks 63310817 Z3A.38 - continue PNV [id number] Anat Jean CNM [place] [address] [address] 03/23/2024 14:30:04 03/23/2024 15:07:53 Gestation period, 39 weeks 04368271 Z3A.39 continue vitamin Health Concerns Section Related Observation LastModified by Organization Detai ls LastModified Time None Recorded Concern Status LastModified by Organization Details LastModified Time None Recorded Advance Directives Directive None Recorded Payers Insurance Date Sequence Insurance Name Policy Number Policy Davis Covered Member ID Davis Member ID Guarantor Name 03/28/2024 1 [facility] ON OR AFTER 02/12/21 (MEDICAID REPLACEMENT - HMO) Ana Lilia Shields [id number] Ana Lilia Shields Notes Date Note Type Note Provider Name and Address Organization Details Recorded Time 02/17/2024 text/html Generic HPI TemplateReported by Patient RUBEN COTA MD [address], [place], [address], [facility] 02/17/2024 16:20:12 03/02/2024 text/html Generic HPI TemplateReported by Patient Anat Jean CNM [address], [place], [address], [facility] 03/02/2024 14:46:19 03/09/2024 text/html Generic HPI TemplateReported by Patient RUBEN COTA MD [address], [place], [address], [facility] 03/09/2024 15:42:42 03/16/2024 text/html Generic HPI TemplateReported by Patient RUBEN COTA MD [address], [place], [address], [facility] 03/16/2024 15:14:55 03/23/2024 text/html Generic HPI TemplateReported by Patient Anat Jean CNM [address], [place], [address], [facility] 03/23/2024 15:07:00 OBGyn Episode Ob Episode Information Episode Created Date Number of Fetuses Patient Bloodtype Patient rh Status Prepregnancy Weight lbs Domestic Partner Domestic Partner Phone Father Name Strategic Planning Analyst Status 08/24/19 24 1 CLOSED Fetus Data First Name Last Name Admitted to NICU Weight (g) Sex Living Outcome Pediatric Complications Fetus ID Race Codes Race Delivery Type 3486.76 1704 F Full Term 02127 Vaginal Delivery Noman Calculation Initial Noman Date [...] Domestic Partner Domestic Partner Phone Father Name Strategic Planning Analyst Status 09/14/19 24 1 B Negative 195.6 CLOSED Fetus Data First Name Last Name Admitted to NICU Weight (g) Sex Living Outcome Pediatric Complications Fetus ID Race Codes Race Delivery Type 4029.89 54519 M true Full Term 31985 Vaginal Delivery Problems Problem Notes echo order sent WASH 11/10/23 Problem Name Start Date End Date Resolution Snomed Code Not e History of anemia 574175539 20 0mg IV Iron once weekly x3 weeks Family history of Congenital heart disease 558342515 FOB with septal defect, needs echo at 24 weeks Dilatation of renal pelvis 977385713 4mm bilaterally at 20 weeks, resolved at 32 wks Placenta circumvallata 4683712 serial growths Urinary tract infection in 09/19/2023 629360326 Ecoli - tx Macrobid bid x5 Prophylactic immunotherapy 901312022 rhogam at 28wk s - received 01/13/24 Noman Calculation Initial Noman Date Initial Exam [...] Date Ultra Sound Latest Days Gestation 0 [email or web address] 09/14/2023 03/26/20 24 0 Pre- Flowsheet Flowsheet Date 09/14/2023 Vanegas Score Blood Edema Fundus Height Fundus Units Glucose Ketones Leukocytes Nitrite Labor Signs Protein Cervic Dilation Cervic Effacement Cervic Station 12 Type Weight in lbs Pre/Post Dialysis Refused Weight 195.252631913311 BP Diastolic BP Location Tested BP Systolic BP Type 78 113 Fetus Heart Rate Present Fetus Movement Comments Patient presents to [facility] care. thus far uncomplicated. Nausea improving, some [...] Weight in lbs Pre/Post Dialysis Refused Weight 194.899717856668 BP Diastolic BP Location Tested BP Systolic [...] Weight in lbs Pre/Post Dialysis Refused Weight 195.456031870031 BP Diastolic BP Location Tested BP Systolic [...] Weight in lbs Pre/Post Dialysis Refused Weight 199.908881625349 BP Diastolic BP Location Tested BP Systolic [...] Weight in lbs Pre/Post Dialysis Refused Weight 202.644466053947 BP Diastolic BP Location Tested BP Systolic [...] Weight in lbs Pre/Post Dialysis Refused Weight 202.371120209884 BP Diastolic BP Location Tested BP Systolic [...] Weight in lbs Pre/Post Dialysis Refused Weight 200.553073012136 BP Diastolic BP Location Tested BP Systolic [...] Weight in lbs Pre/Post Dialysis Refused Weight 201.784221490318 BP Diastolic BP Location Tested BP Systolic [...] Weight in lbs Pre/Post Dialysis Refused Weight 204.782335083327 BP Diastolic BP Location Tested BP Systolic [...] Weight in lbs Pre/Post Dialysis Refused Weight 204.335072562438 BP Diastolic BP Location Tested BP Systolic [...] Weight in lbs Pre/Post Dialysis Refused Weight 203.002533233616 BP Diastolic BP Location Tested BP Systolic [...] Estim ated Date of Delivery false Thalassemia (Swazi, Greenlandic, Mediterranean, Or Background): MCV < 80 false Neural Tube Defect (Meningomyelocele, Spina Bifi da, Or Anencephaly) false Congenital Heart Defect false Down Syndrome false Luis-Sachs (eg, Jew, Cajun, Lithuanian-[place]) f alse Ivy Disease false Sickle Cell Disease Or Trait () false Hemophilia Or Other Blood Disorders false Muscular Dystrophy false Cystic Fibrosis false [place]'s Chorea false Intellectual Disability/Autism false If Yes, [...] Domestic Partner Domestic Partner Phone Father Name Strategic Planning Analyst Status 08/24/19 24 1 CLOSED Fetus Data First Name Last Name Admitted to NICU Weight (g) Sex Living Outcome Pediatric Complications Fetus ID Race Codes Race Delivery Type 3713.55 7704 F Full Term 61515 Vaginal Delivery Noman Calculation Initial Noman Date [...]
--- OUTSIDE RECORDS SUMMARY | 2025-08-11 21:03 | XMS_ITS | Clinical Summary ---
Author Organization [address] - [address] [facility] [address] [place] [address] Phone Care Team Providers Care Launderette Attendant Name Role Phone Unavailable Primary Care Provider [...] 06/17/2020 How often do you attend chur or anabaptist services? Never 06/17/2020 Do you belong to any clubs o r organizations such as druze groups, unions, fraternal or athletic groups, or [...] Comments Blood Pressure 131/72 08/28/2020 2:30 PM EARLY INTERVENTIONIST Pulse 101 08/15/2020 4:51 PM EARLY INTERVENTIONIST Temperature 36.3 C (97.4 F) 08/15/2020 4:51 PM EARLY INTERVENTIONIST Respiratory Rate 18 08/15/2020 4:51 PM EARLY INTERVENTIONIST Oxygen Saturation 99% 08/15/2020 4:51 PM EARLY INTERVENTIONIST Inhaled Oxygen Concentration - - Weight 87.1 kg (192 lb 1.6 oz) 08/28/2020 2:30 P M EARLY INTERVENTIONIST Height 160 cm (5' 3) 08/28/2020 2:30 PM EARLY INTERVENTIONIST Body Mass Index 34.03 08/28/2020 2:30 PM EARLY INTERVENTIONIST Plan of Treatment Health Maintenance Due Date Last Done Comments HPV VACCINES (1 - 3-dose series) 2016 DTAP/TDAP/TD VACCINES (1 - Tdap) 2020 HEPATITIS B VACCINES (1 of 3 - 19+ 3-dose series) 04/16 CERVICAL CANCER SCREENING 2022 HPV/Cotest (21-29) 2022 PAP SMEAR 2022 INFLUENZA VACCINE (#1) 2025 CHLAMYDIA SCREENING (ANNUAL) 11-24 YEARS Discontinued 06/17/2020 Procedures Procedure Name Priority Date/Time Associated Diagnosis Comments GC/CHLAMYDIA, GENITAL Routine 06/17/2020 4:09 PM EARLY INTERVENTIONIST Encounter for supervision of other normal , second trimester from Last 3 Months or Most Recently Relevant to Health Maintenance Results * GC/CHLAMYDIA, GENITAL (06/17/2020 4:09 PM EARLY INTERVENTIONIST) CHLAMYDIA DNA AMPLIFICATION NOT DETECTED Not Detected 06/18/2020 1:06 PM EARLY INTERVENTIONIST [facility] GC DNA AMPLIFICATION NOT DETECTED Not Detected 06/18/2020 1:06 PM EARLY INTERVENTIONIST [facility] Genital SWAB OF ENDOCERVIX / Unknown Collection / Unknown 06/17/2020 4:09 PM EARLY INTERVENTIONIST 06/17/2020 6:20 PM EARLY INTERVENTIONIST Narrative [facility] - 06/18/2020 1:06 PM EARLY INTERVENTIONIST Results should not be used for the evaluation of suspected sexual abuse or for other medico-legal indications. The only legally accepted results are from culture. Results cannot be used to assess therapeutic success or failure since nucleic acids may persist following antimicrobial therapy. Maria Eugenia Conde CNM MICRO - GEN ORDERABLES CO M Final Result [facility] CLIA# [id number] [address] [place] [address] from Last 3 Months or Most Recently Relevant to Health Maintenance Insurance [employer] Advance Directives For more information, please contact: [phone] * Full Code (Latest Code Status on File) Date Activated Date Inactivated Comments 08/15/2020 5:39 PM 08/16/2020 12:58 AM
[2025-08-11 21:18] LABS: Strep Group A RT-PCR DETECTED (Negative)
--- NOTE | 2025-08-11 21:28 | PC.NURSE ---
RESTING QUIETLY ON STRETCHER. WAITING ON SWABS TO RESULT. PATIENT HAS CALL LIGHT IN REACH. NO NEEDS VOICED.
[2025-08-11 21:32] LABS: Influenza A QL RT-PCR Negative (Negative); Influenza B QL RT-PCR Negative (Negative); RSV RNA, RT-PCR Negative (Negative); SARS-CoV-2 RNA PCR Negative (Negative)
--- NOTE | 2025-08-11 21:33 | PC.NURSE ---
DR OZUNA AT THE BEDSIDE
--- NOTE | 2025-08-11 21:49 | PC.NURSE ---
DR OZUNA AT THE BEDSIDE
[2025-08-11] MEDS: PENICILLIN G BENZATHINE 1,200,000 UNITS/2 ML SYRINGE 2400000 UNITS IM (21:56)
[2025-08-11 21:58] LABS: Add Urine Microscopic? YES; Appearance Urine Clear (Clear); Glucose Urine UA Negative (Negative); Leukocyte Esterase Ur 2+ LEU/UL (Negative); Nitrate Urine Negative (Negative); Specific Grav Ur 1.010 (1.010-1.020)
[2025-08-11 22:03] LABS: Pregnancy On Board Control Positive
[2025-08-11 22:37] VITALS: BP 124/70; PULSE 97; RESP 20; O2SAT 100
== END 2025-08-11 22:37 | disposition home or self-care (01) ==
PROVIDERS: Emergency Provider Emergency Medicine; PCP Family Medicine
DX: J02.0 Streptococcal pharyngitis (principal); N30.00 Acute cystitis without hematuria; Z20.822 Contact with and (suspected) exposure to COVID-19
CPT/HCPCS: 81001; 81025; 87637; 87651; 96372; 99283; J0561